=== PATIENT | male | born 1935 | race Caucasian/White ===

== ENCOUNTER 2021-02-28 22:13 | Emergency (ER) | payer MEDICARE, SELFPAY ==
[2021-02-28 22:15] VITALS: BP 213/135; PULSE 88; RESP 16; TEMP 37.2; O2SAT 94; BMI 28.6
[2021-02-28 22:32] VITALS: BP 213/135; PULSE 88; RESP 16; TEMP 37.2; O2SAT 94
--- NOTE | 2021-02-28 22:55 | EKG12_ITS ---
Test Reason : CP Blood Pressure : / mmHG Vent. Rate : 081 BPM Atrial Rate : 081 BPM P-R Int : 170 ms QRS Dur : 098 ms QT Int : 382 ms P-R-T Axes : 037 -44 044 degrees QTc Int : 443 ms Normal sinus rhythm Left axis deviation Moderate voltage criteria for LVH, may be normal variant Abnormal ECG Confirmed by LUCIUS CEBALLOS, DIONICIO ([id number]), supervising editor news reel AN XAVIER ([id number]) on 03/04/2021 2:56:13 PM Referred By: JOSE LUIS Confirmed By:DIONICIO KAN MD
--- NOTE | 2021-02-28 22:55 | RAD_ITS ---
STUDY: X-RAY CHEST REASON FOR EXAM: Male, 85 years old. chest pain TECHNIQUE: Single AP portable view of the chest. COMPARISON: None. FINDINGS: The lungs are clear and expanded. There is no demonstrated pleural abnormality. Normal size heart. Normal mediastinum and rosalind. Normal visualized pulmonary arteries. Normal visualized aortic arch and descending thoracic aorta. Normal visualized thoracic spine. Normal visualized ribs, clavicles, and shoulders. There is no demonstrated abnormality of the visualized soft tissue structures of the upper abdomen. RAD/Chest 1 View (Portable) IMPRESSION: Normal x-ray examination of the chest. Electronically Signed: Sterling Faith DO at 23:45 EDT Tel , Service support ,
--- NOTE | 2021-02-28 22:56 | ED.VIS.GI ---
HPI HPI - GI History of Present Illness Chief Complaint: Chest Pain Informant: patient Abdominal Pain/Flank Pain Onset: Weeks (3) Context: Gradual Onset Timing: Intermittent and Lasts (varies; usually hours when occurs) Quality: Aching Location: Epigastric Current Severity: 3/10 Maximum Severity: 6/10 Worsened by: Food and - (sometimes by lying down at night) Relieved by: Antacids (in past when this occured, but has had no access to any tums/pepto lately) Nausea/Vomiting/Emesis GI Symptom: Negative for Nausea and Vomiting Diarrhea/Melena/Hematochezia GI Symptom: Negative for Diarrhea, Melena and Hematochezia Associated Symptoms Associated Symptoms: Negative for Dysuria, Frequency, Hematuria and Urgency Narrative Narrative: Patient describes discomfort nonradiating in his epigastrium/lower retrosternal area. It is midline. States it seems to be worse after certain foods as it was tonight and would go away although it is better than it was earlier now. Denies any shortness of breath with this, pleuritic nature, palpitations, lightheadedness, syncope or near syncope. No nausea or vomiting or bright red blood per rectum or melena. He does not know what medication she is on or what they are for, but does know that he takes something for blood pressure. Unknown if he has a history of GERD. Does not recall ever having an EGD for any of this or any other testing. He had his gallbladder out but no other abdominal surgeries. That was remotely. [facility] Medical History BPH (benign prostatic hyperplasia) Constipation Dementia Herpes genitalis in men HTN (hypertension) Hyperlipidemia Type 2 diabetes mellitus Vitamin D deficiency Home Medications Pravastatin Sodium 1 tab PO DAILY 12/02/13 [History Last Taken Unknown] aspirin 81 mg PO DAILY@0800 12/02/13 [History Last Taken Unknown] cyanocobalamin (vitamin B-12) 1 tab PO DAILY 12/02/13 [History Last Taken Unknown] doxazosin 1 tab PO DAILY 12/02/13 [History Last Taken Unknown] dutasteride [Avodart] 1 tab PO DAILY 12/02/13 [History Last Taken Unknown] flavoring agent (bulk) [Cinnamon] 1,000 mg PO DAILY 12/02/13 [History Last Taken Unknown] gabapentin 1 tab PO DAILY 12/02/13 [History Last Taken Unknown] glipizide-metformin 1 tab PO BID 12/02/13 [History Last Taken Unknown] multivitamin with folic acid [Thera] 1 tab PO DAILY 12/02/13 [History Last Taken Unknown] ramipril 1 tab PO DAILY 12/02/13 [History Last Taken Unknown] sitagliptin [Januvia] 50 mg PO DAILY 12/02/13 [History Last Taken Unknown] timolol maleate 1 drp EACH EYE DAILY 12/02/13 [History Last Taken Unknown] vitamin E (dl, acetate) 400 units PO DAILY 12/02/13 [History Last Taken Unknown] oxycodone-acetaminophen 1 - 2 tab PO Q4H PRN PRN #30 tab 12/09/13 [Rx Last Taken Unknown] pantoprazole [Protonix] 40 mg PO DAILY #30 tab 03/01/21 [Rx Last Taken Unknown] Allergy/AdvReac Type Severity Reaction Status Date / Time meloxicam AdvReac Other Verified 02/28/21 22:17 Social History Smoking Status: Never smoker ROS ROS ED Constitutional Constitutional ED: Denies chills or fever(s) Eyes Eyes: Denies change in vision or diplopia ENT ENT ED: Denies rhinorrhea or sore throat Cardiovascular Cardiovascular: Reports as per HPI and chest pain; Denies palpitations Respiratory/Chest Respiratory/Chest: Denies cough or dyspnea Gastrointestinal Gastrointestinal: Reports as per HPI and abdominal pain; Denies diarrhea, nausea or vomiting Genitourinary Genitourinary ED: Denies dysuria or hematuria Musculoskeletal Musculoskeletal: Reports back pain and other Details: Chronic back discomfort, lower, stable ; Denies neck pain Integumentary Denies abscess or rash Neurologic Neurologic: Reports other Details: Occasional vertigo when he bends over, relatively brief and resolves when sitting up. Chronic. ; Denies headache(s), paresthesias or weakness Psychiatric Psychiatric: Denies anxiety or suicidal thoughts EXAM Physical Exam Const Vital Signs: 02/28/21 22:15 02/28/21 22:18 02/28/21 22:32 Temperature 99 F 99 F Temperature Source Oral Oral Pulse Rate 88 88 Respiratory Rate 16 16 Respiratory Effort Normal Blood Pressure 213/135 H 213/135 H Blood Pressure Mean 161 161 Pulse Ox 94 94 Oxygen Delivery Method Room Air Room Air 02/28/21 23:37 03/01/21 00:00 Temperature Temperature Source Pulse Rate 75 131 H Respiratory Rate 18 16 Respiratory Effort Blood Pressure 173/90 H 124/77 H Blood Pressure Mean 117 92 Pulse Ox 99 96 Oxygen Delivery Method Positive well nourished and well developed General Appearance ED: well developed and NAD HEENT Reports moist mucous membranes normocephalic and atraumatic Eyes PERRL and EOMs intact bilaterally Neck full ROM and supple Resp normal respiratory effort and clear to auscultation bilaterally Cardio regular rate, regular rhythm and no murmurs Rate: Negative for tachycardic GI non-distended Auscultation: normoactive bowel sounds Palpation: soft and tender epigastric and RUQ (no [place]); Negative for guarding or rebound tenderness present Back/Spine no CVA tenderness General Back: other FROM Extremity normal to inspection General Extremety ED: Negative for edema, pulses abnormal or tenderness General Extremity: Negative for edema or pulses abnormal Neuro oriented x3, CN's II-XII intact bilaterally and no sensory deficits noted Sensorium / Orientation: awake and alert Motor Exam: strength 5/5 throughout Skin no rashes or lesions noted and no wounds MDM MDM Lab Data Attestation: I reviewed the patient's lab results. Lab results narrative: Patient was treated with a GI cocktail and feels much improved. On reexamination he is barely tender in the epigastrium, much improved compared with before. His labs were noted, including negative troponin, lack of a leukocytosis, lack of a urinary infection, normal liver enzymes and lipase. His symptoms sound GI in etiology. I also did a cardiac work-up which was negative, including chest x-ray. He is not on an H2 leonarda or PPI so I will prescribe him 1 and advised close outpatient follow-up. Additionally, his blood pressure was extremely high in triage. He was given clonidine 0.1 mg and on reevaluation his blood pressure is 124/77. It is unknown if this contributed to his symptoms, but the patient states that he felt like the GI cocktail helped his abdominal discomfort. His blood pressure could have been incidentally elevated. He will need to have this followed up on, he is already on blood pressure medication that he should continue, but he does not know the dose. Labs: Laboratory Results - last 24 hr 05/13/21 05/13/21 05/13/21 23:00 23:00 23:15 WBC 10.2 RBC 4.35 L Hgb 13.2 Hct 40.5 MCV 93.1 MCH 30.3 MCHC 32.6 RDW Std Deviation 45.7 H RDW Coeff of Susi 13.3 Plt Count 322 MPV 9.8 Immature Gran % (Auto) 0.400 Neut % (Auto) 76.2 H Lymph % (Auto) 14.0 L [place] % (Auto) 8.0 Eos % (Auto) 1.0 Baso % (Auto) 0.4 Absolute Neuts (auto) 7.8 H Absolute Lymphs (auto) 1.43 Nucleated RBC % 0 Sodium 136 Potassium 4.0 Chloride 103 Carbon Dioxide 28.0 Anion Gap 5 BUN 17 Creatinine 0.99 Estim Creat Clear Calc 49.23 Est GFR (MDRD) Af Amer 92 Est GFR (MDRD) Non-Af 76 BUN/Creatinine Ratio 17.2 Glucose 349 H Calcium 8.8 Total Bilirubin 0.20 AST 15 ALT 33 Alkaline Phosphatase 94 Troponin I < 0.015 Total Protein 7.0 Albumin 3.2 Globulin 3.8 Albumin/Globulin Ratio 0.8 L Lipase 40 L Urine Color Yellow Urine Clarity Clear Urine pH 6.5 Ur Specific [place] 1.010 Urine Protein Negative Urine Glucose (UA) 1000 H Urine Ketones Negative Urine Occult Blood Negative Urine Nitrite Negative Urine Bilirubin Negative Urine Urobilinogen Normal Ur Leukocyte Esterase Negative Urine RBC 0 SEEN Urine WBC 0 SEEN Ur Squamous Epith Cells 0 SEEN Urine Bacteria 0 SEEN Urine Mucus 0 SEEN Radiography Chest X-Ray - ED: 1 View, Read by ED Physician, No Acute Disease and No Infiltrates Diagnostic Testing: Radiology Impression Chest X-Ray 02/28/21 22:55 IMPRESSION: Normal x-ray examination of the chest. Electronically Signed: Sterling Faith DO at 23:45 EDT Tel , Service support , EKG Initial EKG: Attestation: I personally reviewed and interpreted this EKG as follows: Interpretation: Sinus Rhythm, No Acute Injury Pattern and LAFB Prior EKG tracings: available for review Prior: Unchanged Discharge Plan Triage Chief Complaint: Chest Pain ED Provider: Vicente Blake Dx/Rx/DC Orders Clinical Impression: Epigastric pain, Episode of hypertension Instructions: ED High Blood Pressure ..., ED Epigastric Pain (Uncertain Cause) Prescriptions: New pantoprazole [Protonix] 40 mg tablet,delayed release (DR/EC) 40 mg PO DAILY Qty: 30 RF: 0 No Action aspirin 81 MG tablet 81 mg PO DAILY@0800 RF: 0 doxazosin 8 MG tablet 1 tab PO DAILY RF: 0 cyanocobalamin (vitamin B-12) 500 MCG tablet 1 tab PO DAILY RF: 0 ramipril 2.5 MG capsule 1 tab PO DAILY RF: 0 gabapentin 100 MG capsule 1 tab PO DAILY RF: 0 timolol maleate 1 DROP drops 1 drp Each Eye DAILY RF: 0 glipizide-metformin 1 EACH tablet 1 tab PO BID RF: 0 dutasteride [Avodart] 0.5 MG capsule 1 tab PO DAILY RF: 0 flavoring agent (bulk) [Cinnamon Flavoring] 3.7 ML oil 1,000 mg PO DAILY RF: 0 sitagliptin [Januvia] 50 MG tablet 50 mg PO DAILY RF: 0 vitamin E (dl, acetate) 400 UNITS capsule 400 units PO DAILY RF: 0 multivitamin with folic acid [Thera] 1 TABLET tablet 1 tab PO DAILY RF: 0 Pravastatin Sodium 40 MG tablet 1 tab PO DAILY RF: 0 oxycodone-acetaminophen 1 TABLET tablet 1 - 2 tab PO Q4H PRN PRN (Reason: Pain) Qty: 30 RF: 0 Primary Care Provider: Alfonzo Mora Referrals: Alfonzo Mora MD [Primary Care Provider] - 5-7 Days Activity Restrictions/Additional Instructions: Make sure to follow-up with your doctor to have your blood pressure rechecked and to reevaluate your medications and symptoms of abdominal pain. Disposition Disposition: Home, self care
[2021-02-28 23:18] LABS: Absolute Lymphocyte Count 1.43 X10^3/uL (0.83-4.51); Absolute Neutrophil Count 7.8 X10^3/uL (2.0-7.7); Basophil# 0.04 X10^3/uL; Basophil% 0.4 % (0-1); Hematocrit 40.5 % (40-54); Hemoglobin 13.2 g/dL (13.0-16.5); Lymphocyte # 1.43 X10^3/ul (0.83-4.51); Mean Corp Hgb Conc 32.6 g/dL (32-36); Mean Corpuscular Hgb 30.3 pg (27.0-32.0); Mean Corpuscular Volume 93.1 fL (80-94); Mean Platelet Vol. 9.8 fl (6.2-12.0); Monocyte# 0.82 X10^3/uL; NRBC Flagged by Analyzer 0 % (0-5); Neutrophil # 7.76 X10^3/uL (2.7-7.7); Neutrophil % 76.2 % (47-70); Platelet Count 322 K/mm3 (150-450); RBC Distribution Width CV 13.3 % (11.6-14.6); RBC Distribution Width SD 45.7 fl (35.1-43.9); Red Blood Count 4.35 M/mm3 (4.6-6.2); White Blood Count 10.2 K/mm3 (4.4-11.0)
[2021-02-28 23:31] LABS: Bacteria 0 SEEN /hpf (None Seen); Mucous, Urine 0 SEEN /hpf (<or=2+); Red Blood Cells-Urine 0 SEEN /hpf (0-5); Squamous Epithelial Cells - UA 0 SEEN /hpf (0-5); White Blood Cells 0 SEEN /hpf (0-5)
[2021-02-28 23:33] LABS: Color, Urine Yellow (Yellow); Glucose, Dipstick 1000 mg/dl (Normal); Ketone-Dipstick Negative (Negative); Leukocyte Esterase-Dipstick Negative /ul (Negative); Nitrite-Dipstick Negative (Negative); Occult Blood-Urine Negative /ul (Negative); Protein-Dipstick Negative (Negative); Urine Bilirubin Dipstick Negative (Negative); Urine Clarity Clear (Clear); Urine Urobilinogen Normal (Normal); Urine pH 6.5 (5.0 - 8.0)
[2021-02-28 23:37] VITALS: BP 173/90; PULSE 75; RESP 18; O2SAT 99
[2021-02-28 23:38] LABS: ALB/GLOB Ratio 0.8 RATIO (0.9-2.4); AST(SGOT) 15 U/L (15-37); Alanine Aminotransfer ALT/SGPT 33 U/L (16-61); Albumin, Serum 3.2 g/dL (3.2-5.0); Alkaline Phosphatase 94 U/L (45-117); Anion Gap 5 (5-15); BUN 17 mg/dL (7-18); BUN/Creat Ratio 17.2 RATIO (10-20); Calcium,Total 8.8 mg/dL (8.5-10.1); Chloride 103 mmol/L (98-107); Creatinine, Serum 0.99 mg/dL (0.70-1.30); EST Glomerular Filtration Rate 76 mL/min (>60); Est Glom Filt Rate - Afr Amer 92 mL/min (>60); Estimated Creatinine Clearance 49.23 ml/min; Globulin 3.8 g/dL (2.2-4.2); Glucose 349 mg/dL (74-106); Lipase 40 U/L (73-393); Sodium Level 136 mmol/L (136-145)
[2021-02-28] MEDS: cloNIDine HCl 0.1 MG Tablet PO (23:39)
[2021-02-28] MEDS: Mag Hydrox/Al Hydrox/Simeth 30 ML UDC PO (23:39)
[2021-03-01] VITALS: BP 124/77; PULSE 131; RESP 16; O2SAT 96
[2021-03-01] MEDS: Pantoprazole Sodium 40 MG Tablet PO (01:37)
[2021-03-01 01:38] VITALS: BP 159/91; PULSE 52; RESP 16; O2SAT 99
== END 2021-03-01 01:41 | disposition home or self-care (01) ==
PROVIDERS: Emergency Provider Emergency Medicine; PCP Family Medicine
DX: R10.13 Epigastric pain (principal); I10 Essential (primary) hypertension; K59.00 Constipation, unspecified; N40.0 Benign prostatic hyperplasia without lower urinary tract symptoms; F03.90 Unspecified dementia, unspecified severity, without behavioral disturbance, psychotic disturbance, mood disturbance, and anxiety; E78.5 Hyperlipidemia, unspecified; E55.9 Vitamin D deficiency, unspecified; E11.9 Type 2 diabetes mellitus without complications; Z79.82 Long term (current) use of aspirin; Z79.84 Long term (current) use of oral hypoglycemic drugs; Z79.899 Other long term (current) drug therapy
CPT/HCPCS: 71045; 80053; 81001; 83690; 84484; 85025; 93005; 99285; A4216

== ENCOUNTER 2021-03-01 02:41 | Observation (INO) | payer MEDICARE, OTHER, SELFPAY ==
[2021-02-28 22:15] VITALS: BMI 28.6
[2021-03-01] VITALS (11 sets, daily range): BP systolic 115–177; BP diastolic 68–119; PULSE 87–122; RESP 16–18; TEMP 36.1–37.6; O2SAT 94–99; BMI 27.0; BMI 25.4
--- NOTE | 2021-03-01 02:52 | EX.ED.DYSGE1 ---
HPI History of Present Illness Chief Complaint: Hypertension Informant: patient Onset/Context/Timing Quality: Ache Location: Lower chest/epigastrium Current Severity: Mild Maximum Severity: Moderate Narrative Narrative: Patient was just discharged from this department after being seen by myself for lower chest/upper abdominal pain, getting better after GI cocktail, and having high blood pressure. We got his blood pressure down, it was around 150 when the nurse checked it again just prior to the EMS crew picking him up to take him back to assisted living, and when he returned there they checked it again it was 200 systolic, and assisted living refused to take him back so squad brought him back. He states he feels the same, no different, no worse, still mild discomfort between his chest and epigastrium. 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 HTN (hypertension) Hyperlipidemia Type 2 diabetes mellitus Vitamin D deficiency Home Medications Pravastatin Sodium 1 tab PO DAILY 12/02/13 [History Last Taken Unknown] aspirin 81 mg PO DAILY@0800 12/02/13 [History Last Taken Unknown] cyanocobalamin (vitamin B-12) 1 tab PO DAILY 12/02/13 [History Last Taken Unknown] doxazosin 1 tab PO DAILY 12/02/13 [History Last Taken Unknown] dutasteride [Avodart] 1 tab PO DAILY 12/02/13 [History Last Taken Unknown] flavoring agent (bulk) [Cinnamon] 1,000 mg PO DAILY 12/02/13 [History Last Taken Unknown] gabapentin 1 tab PO DAILY 12/02/13 [History Last Taken Unknown] glipizide-metformin 1 tab PO BID 12/02/13 [History Last Taken Unknown] multivitamin with folic acid [Thera] 1 tab PO DAILY 12/02/13 [History Last Taken Unknown] ramipril 1 tab PO DAILY 12/02/13 [History Last Taken Unknown] sitagliptin [Januvia] 50 mg PO DAILY 12/02/13 [History Last Taken Unknown] timolol maleate 1 drp EACH EYE DAILY 12/02/13 [History Last Taken Unknown] vitamin E (dl, acetate) 400 units PO DAILY 12/02/13 [History Last Taken Unknown] oxycodone-acetaminophen 1 - 2 tab PO Q4H PRN PRN #30 tab 12/09/13 [Rx Last Taken Unknown] pantoprazole [Protonix] 40 mg PO DAILY #30 tab 03/01/21 [Rx Last Taken Unknown] Allergy/AdvReac Type Severity Reaction Status Date / Time meloxicam AdvReac Other Verified 02/28/21 22:17 Social History Smoking Status: Never smoker ROS ROS ED Constitutional Constitutional ED: Denies chills or fever(s) Eyes Eyes: Denies change in vision or diplopia ENT ENT ED: Denies rhinorrhea or sore throat Cardiovascular Cardiovascular: Reports as per HPI and chest pain; Denies palpitations Respiratory/Chest Respiratory/Chest: Denies cough or dyspnea Gastrointestinal Gastrointestinal: Reports as per HPI and abdominal pain; Denies diarrhea, nausea or vomiting Genitourinary Genitourinary ED: Denies dysuria or hematuria Musculoskeletal Musculoskeletal: Denies back pain or neck pain Integumentary Denies abscess or rash Neurologic Neurologic: Denies headache(s), paresthesias or weakness Psychiatric Psychiatric: Denies anxiety or suicidal thoughts EXAM Physical Exam Const Vital Signs: 03/01/21 02:42 03/01/21 03:15 03/01/21 03:17 Temperature 97.3 F L Temperature Source Temporal Pulse Rate 94 89 Respiratory Rate 16 16 Respiratory Pattern Normal Blood Pressure 177/119 H 173/99 H Blood Pressure Mean 138 123 Pulse Ox 96 95 Positive well nourished and well developed General Appearance ED: well developed and NAD HEENT Reports moist mucous membranes normocephalic and atraumatic Eyes PERRL and EOMs intact bilaterally Neck full ROM and supple Resp normal respiratory effort and clear to auscultation bilaterally Cardio regular rate, regular rhythm and no murmurs GI non-distended Auscultation: normoactive bowel sounds Palpation: soft and tender epigastric Back/Spine no CVA tenderness General Back: other FROM Extremity normal to inspection General Extremety ED: Negative for edema, pulses abnormal or tenderness General Extremity: Negative for edema or pulses abnormal Neuro oriented x3, CN's II-XII intact bilaterally and no sensory deficits noted Sensorium / Orientation: awake and alert Motor Exam: strength 5/5 throughout Skin no rashes or lesions noted and no wounds MDM MDM MDM Narrative Medical decision making narrative: I repeated the patient's EKG it shows no acute injury. I gave him labetalol which temporarily brought his pressure down but then it went back up into the 180s. He continues to have mild upper abdominal discomfort which I think is likely GI, but I am concerned about his pressure and I think admitting him to get his pressure under control would be most reasonable. Apparently the senior care did not want to take him back because his blood sugar was in the 300s. The patient had told me prior to the first visit that he was given his nighttime insulin already, and since I did not have good data on how much insulin he got, I held off. Now his blood sugar is in the low 200s. Lab Data Labs: Laboratory Results - last 24 hr 03/01/21 03:08 POC Glucose 282 H EKG Initial EKG: Attestation: I personally reviewed and interpreted this EKG as follows: Interpretation: Sinus Rhythm and No Acute Injury Pattern Prior EKG tracings: available for review Prior: Unchanged Discharge Plan Dx/Rx/DC Orders Clinical Impression: Chest pain, Accelerated hypertension, Epigastric pain Disposition Disposition: Acute Care Hospital [facility]
--- NOTE | 2021-03-01 02:53 | EKG12_ITS ---
Test Reason : Blood Pressure : / mmHG Vent. Rate : 096 BPM Atrial Rate : 096 BPM P-R Int : 160 ms QRS Dur : 088 ms QT Int : 352 ms P-R-T Axes : 024 -55 060 degrees QTc Int : 444 ms Normal sinus rhythm Left anterior fascicular block Minimal voltage criteria for LVH, may be normal variant Poor R wave progression Abnormal ECG Confirmed by LUCIUS CEBALLOS, DIONICIO ([id number]), publication editor AN XAVIER ([id number]) on 03/04/2021 2:56:32 PM Referred By: HAO Confirmed By:DIONICIO KAN MD
[2021-03-01] MEDS: Labetalol (Prefilled) 20 MG/4 ML 10 MG IV (03:13)
[2021-03-01 03:15] LABS: Bedside Glucose 282 mg/dL (70-110)
--- NOTE | 2021-03-01 04:36 | PCM.HP.STD ---
[facility] - General General Date of Admission: 03/01/21 HPI Narrative Patient is a 85 M with a significant history of dementia; hypertension; and type 2 diabetes who lives at [facility] presenting to the emergency department with epigastric pain. He rated his pain as 8 out of 10. The pain radiated to his lower abdomen. He thinks greasy food worsens the pain. He denies any ameliorating factors to the pain. This is a second visit to the emergency department. On the first visit patient was given a GI cocktail which helped with his pain. He had high blood pressure at that time. His blood pressure was controlled and he was sent back to the assisted. When he got to the assisted his blood pressure was in the 200s and his blood glucose was in the 300s. He was transported back to the emergency department. At the emergency department he was given labetalol IV. He reports having a Covid vaccination the same day of his first presentation to the emergency department. This was his first Covid shot. Of note his first visit was on the night of 02/28/2021 and the second visit was in the AM of 03/01/2021. [facility] Medical History BPH (benign prostatic hyperplasia) Constipation Dementia Herpes genitalis in men HTN (hypertension) Hyperlipidemia Non-smoker Rheumatoid arthritis Type 2 diabetes mellitus Vitamin D deficiency Home Medications multivitamin with folic acid [Thera] 1 tab PO DAILY 12/02/13 [History Last Taken Unknown] ramipril 1 tab PO DAILY 12/02/13 [History Last Taken Unknown] timolol maleate 1 drp EACH EYE DAILY 12/02/13 [History Last Taken Unknown] acetaminophen 500 mg PO BID 03/01/21 [History Last Taken Unknown] cholecalciferol (vitamin D3) [Vitamin D3] 125 mcg PO DAILY 03/01/21 [History Last Taken Unknown] finasteride [Proscar] 5 mg PO DAILY 03/01/21 [History Last Taken Unknown] glimepiride 4 mg PO BID 03/01/21 [History Last Taken Unknown] insulin aspart U-100 [Novolog U-100 Insulin aspart] 5 unit SUBCUT BID 03/01/21 [History Last Taken Unknown] insulin glargine [Basaglar KwikPen U-100 Insulin] 18 unit SUBCUT DAILY 03/01/21 [History Last Taken Unknown] loratadine 10 mg PO DAILY 03/01/21 [History Last Taken Unknown] omeprazole 20 mg PO DAILY 03/01/21 [History Last Taken Unknown] pravastatin 20 mg PO DAILY 03/01/21 [History Last Taken Unknown] tamsulosin 0.4 mg PO DAILY 03/01/21 [History Last Taken Unknown] Allergy/AdvReac Type Severity Reaction Status Date / Time meloxicam AdvReac Other Verified 03/01/21 06:03 Family History (Updated 03/01/21 @ 06:[address] Soren Larsen MD) Other Arthritis CVA (cerebral vascular accident) Diabetes Surgical History History of cholecystectomy Social History Smoking Status: Never smoker ROS ROS Narrative 12 point review of systems negative except as stated in HPI Vital Signs Vital Signs Vital Signs: 03/01/21 02:42 03/01/21 03:15 03/01/21 03:17 Temperature 97.3 F L Temperature Source Temporal Pulse Rate 94 89 Respiratory Rate 16 16 Respiratory Pattern Normal Blood Pressure 177/119 H 173/99 H Blood Pressure Mean 138 123 Pulse Ox 96 95 Physical Exam Narrative Alert and oriented x3 Nontraumatic; normocephalic Lung clear to auscultate Heart sounds S1-S2. No gallop or rubs. Murmur present (chronic) Abdomen bowel sounds present soft, nontender nondistended Extremity without edema cyanosis or clubbing. Lab / Micro Data Labs: Laboratory Results - last 24 hr 03/01/21 03:08 POC Glucose 282 H Assessment & Plan Assessment/Plan (1) Epigastric pain: (2) Episode of hypertension: (3) Accelerated hypertension: (4) Hyperglycemia due to diabetes mellitus: PLAN: Hypertensive emergency IV labetalol and IV hydralazine as needed to keep systolic blood pressure between 160-1 80 in the first 24 hours. Resume home blood pressure medications when reconciled. Trend blood pressures. Epigastric pain Radiologist impression of chest x-ray: Acute chest x-ray image was independently visualized. Add radiologist interpretation. EKG reviewed showed ST depressions in leads I and aVL. Likely secondary to hypertensive effects. trend troponin. Escalate Protonix. Mylanta as needed. Hyperglycemia due to diabetes mellitus Accu-Chek with correction scale insulin. Ordered. Continue home p.o. and basal insulin when reconciled. DVT prophylaxis Subcutaneous Lovenox ordered. Visit Charges OBSV E&M: [id number] Initial observation care L3
[2021-03-01] MEDS: Pantoprazole Sodium 40 MG Tablet PO ×2 (06:33→21:56)
[2021-03-01 06:50] LABS: Bedside Glucose 358 mg/dL (70-110)
[2021-03-01] MEDS: Insulin Lispro 100 UNIT/ML INSULN.PEN SC ×4 (06:50→21:56)
[2021-03-01] MEDS: Mag Hydrox/Al Hydrox/Simeth 30 ML UDC PO (07:11)
[2021-03-01] MEDS: 0.9% Saline Lock 10 ML Syringe IV ×2 (09:15→19:48)
[2021-03-01] MEDS: Ondansetron 4 MG/2 ML Vial IV ×2 (09:15→19:48)
--- NOTE | 2021-03-01 10:10 | CASEMGMT ---
Addendum entered by Renetta Morrow 03/01/21 13:43: SW spoke with patient's son and he confirmed that the plan is for patient to return to [facility] at discharge. He said he could transport patient when he is ready. Green sheet will be placed on patient's chart. Plan: Return to [facility]. Family will transport back. Renetta SCOTT Original Note: Patient is from [facility]. TRUE faxed clinicals to [facility]. TRUE will talk with patient's son and confirm that his plan is to return to [facility] and see if he will be transporting. Renetta SCOTT
[2021-03-01] MEDS: Enoxaparin 40 MG/0.4 ML Syringe SC (11:40)
[2021-03-01 12:01] LABS: Bedside Glucose 334 mg/dL (70-110)
[2021-03-01] MEDS: Acetaminophen 325 MG Tablet 650 MG PO ×2 (12:01→19:47)
[2021-03-01] MEDS: Senna/Docusate Sodium 1 Tablet 2 TABLET PO ×2 (12:55→19:47)
[2021-03-01 13:36] LABS: Bedside Glucose 351 mg/dL (70-110)
[2021-03-01] MEDS: Bisacodyl 10 MG Suppository RC (15:19)
[2021-03-01 16:30] LABS: Bedside Glucose 245 mg/dL (70-110)
--- NOTE | 2021-03-01 17:28 | PCM.HOSP.N ---
Hospitalist Note Patient was seen and examined briefly today, his blood pressure is under better control at this time, he does complain of some vague mid abdominal pain, I have elected to give the patient a laxative today. His blood pressure and blood sugar will continue to be monitored.
[2021-03-01 22:06] LABS: Bedside Glucose 256 mg/dL (70-110)
[2021-03-02 03:00] VITALS: PULSE 80
[2021-03-02 03:14] VITALS: BP 128/79; PULSE 83; RESP 18; TEMP 36.7; O2SAT 94
[2021-03-02 05:51] LABS: Absolute Neutrophil Count 5.8 X10^3/uL (2.0-7.7); Basophil# 0.02 X10^3/uL; Basophil% 0.3 % (0-1); Eosinophil# 0.05 X10^3/uL; Eosinophils% 0.7 % (0-5); Hematocrit 40.8 % (40-54); Hemoglobin 13.5 g/dL (13.0-16.5); Lymphocyte % 9.6 % (19-41); Mean Corp Hgb Conc 33.1 g/dL (32-36); Mean Corpuscular Hgb 30.3 pg (27.0-32.0); Mean Corpuscular Volume 91.5 fL (80-94); Mean Platelet Vol. 9.8 fl (6.2-12.0); Monocyte# 0.73 X10^3/uL; NRBC Flagged by Analyzer 0 % (0-5); Neutrophil # 5.77 X10^3/uL (2.7-7.7); Platelet Count 287 K/mm3 (150-450); RBC Distribution Width CV 13.4 % (11.6-14.6); RBC Distribution Width SD 45.8 fl (35.1-43.9); Red Blood Count 4.46 M/mm3 (4.6-6.2); White Blood Count 7.3 K/mm3 (4.4-11.0)
[2021-03-02 06:35] LABS: Anion Gap 7 (5-15); BUN 21 mg/dL (7-18); Calcium,Total 8.1 mg/dL (8.5-10.1); Chloride 100 mmol/L (98-107); Creatinine, Serum 0.81 mg/dL (0.70-1.30); EST Glomerular Filtration Rate 96 mL/min (>60); Est Glom Filt Rate - Afr Amer 116 mL/min (>60); Estimated Creatinine Clearance 62.34 ml/min; Glucose 242 mg/dL (74-106); Potassium 3.6 mmol/L (3.5-5.1); Sodium Level 133 mmol/L (136-145)
[2021-03-02] MEDS: Insulin Lispro 100 UNIT/ML INSULN.PEN SC ×2 (06:35→11:20)
[2021-03-02 06:40] LABS: Bedside Glucose 290 mg/dL (70-110)
[2021-03-02 07:00] VITALS: PULSE 82
[2021-03-02 09:01] VITALS: BP 140/77; PULSE 83; RESP 16; TEMP 36.2; O2SAT 94
[2021-03-02] MEDS: Enoxaparin 40 MG/0.4 ML Syringe SC (09:07)
[2021-03-02] MEDS: Aspirin 81 MG TAB.CHEW PO (09:08)
[2021-03-02] MEDS: Pantoprazole Sodium 40 MG Tablet PO (09:08)
[2021-03-02] MEDS: Senna/Docusate Sodium 1 Tablet 2 TABLET PO (09:08)
--- NOTE | 2021-03-02 10:55 | CASEMGMT ---
JUDIE ESTRADA in to discuss DYE Form with patient, DIL at bedside. RN NATALIE explained DYE form to patient and daughter. Patient voiced understanding and requested DIL sign form. Signed form filed in chart and copy provided to patient. Patient had no further questions or concerns at this time.
[2021-03-02 11:26] LABS: Bedside Glucose 280 mg/dL (70-110)
--- NOTE | 2021-03-02 14:12 | PCM.DC ---
Discharge Instructions Follow Up Care Test Results: Test results from this visit will be discussed in further detail at your follow-up appointment, if applicable. Discharge Plan Admission Admit Date/Time: 03/01/21 04:43 Primary Reason for Your Visit: uncontrolled hypertension Attending Provider: Wade Horan Primary Care Provider: Alfonzo Mora Instructions Patient Instructions: ED Chest Pain, Noncardiac Discharge Orders/Prescriptions Prescriptions: New lisinopril 40 mg tablet 40 mg PO DAILY Qty: 30 RF: 0 amlodipine [Norvasc] 2.5 mg tablet 2.5 mg PO DAILY Qty: 30 RF: 0 Continued timolol maleate 1 DROP drops 1 drp Each Eye DAILY RF: 0 multivitamin with folic acid [Thera] 1 TABLET tablet 1 tab PO DAILY RF: 0 acetaminophen 500 mg Tablet 500 mg PO BID RF: 0 tamsulosin 0.4 mg Capsule 0.4 mg PO DAILY RF: 0 glimepiride 4 mg tablet 4 mg PO BID RF: 0 omeprazole 20 mg Capsule,Delayed Release(Dr/Ec) 20 mg PO DAILY RF: 0 pravastatin 20 mg tablet 20 mg PO DAILY RF: 0 finasteride [Proscar] 5 mg tablet 5 mg PO DAILY RF: 0 loratadine 10 mg Tablet 10 mg PO DAILY RF: 0 cholecalciferol (vitamin D3) [Vitamin D3] 125 mcg (5,000 unit) Tablet 125 mcg PO DAILY RF: 0 Changed insulin aspart U-100 [Novolog U-100 Insulin aspart] 100 unit/mL Solution 10 unit SUBCUT BID Qty: 0 RF: 0 Basaglar KwikPen U-100 Insulin 100 unit/mL (3 mL) insulin pen 22 unit SUBCUT DAILY Qty: 0 RF: 0 Discontinued ramipril 2.5 MG capsule 1 tab PO DAILY RF: 0 Referrals / Follow Up: Alfonzo Mora MD [Primary Care Provider] - Disposition Disposition (needs filled in before D/C Order can be placed): Assisted Living
[2021-03-02 14:21] VITALS: BP 118/70; PULSE 83; RESP 16; TEMP 36.4; O2SAT 94
[2021-03-02] MEDS: Bisacodyl 5 MG Tablet 10 MG PO (14:47)
[2021-03-02] MEDS: Lisinopril 40 MG Tablet PO (14:48)
[2021-03-02] MEDS: amLODIPine 2.5 MG Tablet PO (14:48)
[2021-03-02 15:00] VITALS: PULSE 78
--- NOTE | 2021-03-04 19:51 | DS.PCM_ITS ---
Providers Date of Admission: 03/01/21 Date of Discharge: 03/02/21 Primary Care Physician: Dr. Alfonzo Mora MD Reason For Visit: HYPERTENSIVE EMERGENCY Diagnosis Discharge Diagnosis (1) Epigastric pain: Status: Acute Code(s): R10.13 - Epigastric pain (2) Episode of hypertension: Status: Acute Code(s): I10 - Essential (primary) hypertension (3) Accelerated hypertension: Status: Acute Code(s): I10 - Essential (primary) hypertension (4) Hyperglycemia due to diabetes mellitus: Status: Acute Code(s): E11.65 - Type 2 diabetes mellitus with hyperglycemia Plan: 1. Uncontrolled hypertension #2 dementia #3 unspecified abdominal pain-etiology unclear #4 type 2 diabetes #5 hyperlipidemia #6 BPH Medications at Discharge Home Medications multivitamin with folic acid [Thera] 1 tab PO DAILY 12/02/13 timolol maleate 1 drp EACH EYE DAILY 12/02/13 acetaminophen 500 mg PO BID 03/01/21 cholecalciferol (vitamin D3) [Vitamin D3] 125 mcg PO DAILY 03/01/21 finasteride [Proscar] 5 mg PO DAILY 03/01/21 glimepiride 4 mg PO BID 03/01/21 loratadine 10 mg PO DAILY 03/01/21 omeprazole 20 mg PO DAILY 03/01/21 pravastatin 20 mg PO DAILY 03/01/21 tamsulosin 0.4 mg PO DAILY 03/01/21 Basaglar KwikPen U-100 Insulin 22 unit SUBCUT DAILY #0 ml 03/02/21 amlodipine [Norvasc] 2.5 mg PO DAILY #30 tab 03/02/21 insulin aspart U-100 [Novolog U-100 Insulin aspart] 10 unit SUBCUT BID #0 ml 03/02/21 lisinopril 40 mg PO DAILY #30 tab 03/02/21 Hospital Course Operations None Procedures None Summary of Care Provided Minutes Spent on Discharge: 30 Hospital Course: This 85-year-old white male was seen in the emergency room at [facility] with chief complaint of epigastric abdominal pain and high blood pressure, he had been seen in the emergency room earlier on that date and was being taken back to assisted living when it was noted that his blood pressure was high in the squad and the squad brought him back to the emergency room for evaluation. Patient was given additional blood pressure medications in the ER and he was placed in observation status on PCU, patient's blood pressure medications were adjusted and his blood pressure came down without incident. Patient continued to have epigastric discomfort, the exact etiology was unclear but could be due to constipation. On 03/02/2021, patient was seen and examined: On examination he appeared his stated age. Vital signs as documented. Skin warm and dry and without overt rashes. Neck without JVD, neck was supple, trachea midline, thyroid was normal. Lungs clear bilaterally, normal air movement was noted. Heart exam notable for regular rhythm, normal sounds and absence of murmurs, rubs or gallops. Abdomen unremarkable and without evidence of organomegaly, masses, or abdominal aortic enlargement. Bowel sounds are present, abdomen is not distended. Extremities nonedematous, no cyanosis was noted, no clubbing was noted. Neuro: Cranial nerves II through XII are grossly intact, no focal motor deficits were noted, sensation to light touch and pinprick intact, motor exam 5/5 throughout. Psych: Patient is alert, he exhibited cognitive impairment, he did not appear anxious Patient was discharged on 03/02/2021 is stable condition back to his assisted living facility. ABG / Lab / Microbiology Data Result Diagrams: 03/02/21 05:24 03/02/21 05:24 Meaningful Use Info Meaningful Use Diagnoses (Choose all that apply): None applicable Discharge Plan Admission Admit Date/Time: 03/01/21 04:43 Primary Reason for Your Visit: uncontrolled hypertension Attending Provider: Wade Horan Primary Care Provider: Alfonzo Mora Instructions Patient Instructions: ED Chest Pain, Noncardiac Additional Instructions / Restrictions: Patient Problems: Altered Health Status related to Hospitalization Patient Goals: *Optimal Level of Health *Keep Appointments *Medication Compliance *Remain Safe Discharge Orders/Prescriptions Prescriptions: New lisinopril 40 mg tablet 40 mg PO DAILY Qty: 30 RF: 0 amlodipine [Norvasc] 2.5 mg tablet 2.5 mg PO DAILY Qty: 30 RF: 0 Continued timolol maleate 1 DROP drops 1 drp Each Eye DAILY RF: 0 multivitamin with folic acid [Thera] 1 TABLET tablet 1 tab PO DAILY RF: 0 acetaminophen 500 mg Tablet 500 mg PO BID RF: 0 tamsulosin 0.4 mg Capsule 0.4 mg PO DAILY RF: 0 glimepiride 4 mg tablet 4 mg PO BID RF: 0 omeprazole 20 mg Capsule,Delayed Release(Dr/Ec) 20 mg PO DAILY RF: 0 pravastatin 20 mg tablet 20 mg PO DAILY RF: 0 finasteride [Proscar] 5 mg tablet 5 mg PO DAILY RF: 0 loratadine 10 mg Tablet 10 mg PO DAILY RF: 0 cholecalciferol (vitamin D3) [Vitamin D3] 125 mcg (5,000 unit) Tablet 125 mcg PO DAILY RF: 0 Changed insulin aspart U-100 [Novolog U-100 Insulin aspart] 100 unit/mL Solution 10 unit SUBCUT BID Qty: 0 RF: 0 Basaglar KwikPen U-100 Insulin 100 unit/mL (3 mL) insulin pen 22 unit SUBCUT DAILY Qty: 0 RF: 0 Discontinued ramipril 2.5 MG capsule 1 tab PO DAILY RF: 0 Referrals / Follow Up: Alfonzo Mora MD [Primary Care Provider] - Disposition Disposition (needs filled in before D/C Order can be placed): Assisted Living Visit Charges OBSV E&M: 63375 Observation care discharge
== END 2021-03-02 14:26 | disposition home or self-care (01) ==
LOC: ED 04:22 → PCU 04:57
PROVIDERS: Admitting Provider Hospitalist; Emergency Provider Emergency Medicine; PCP Family Medicine; Visit Provider Internal Medicine
DX: R10.13 Epigastric pain (principal); I10 Essential (primary) hypertension; E11.65 Type 2 diabetes mellitus with hyperglycemia; I16.1 Hypertensive emergency; N40.0 Benign prostatic hyperplasia without lower urinary tract symptoms; E78.5 Hyperlipidemia, unspecified; E55.9 Vitamin D deficiency, unspecified; Z79.4 Long term (current) use of insulin; Z79.899 Other long term (current) drug therapy; Z79.82 Long term (current) use of aspirin; F03.90 Unspecified dementia, unspecified severity, without behavioral disturbance, psychotic disturbance, mood disturbance, and anxiety; M06.9 Rheumatoid arthritis, unspecified; K59.00 Constipation, unspecified
CPT/HCPCS: 36415; 80048; 82962; 84484; 85025; 93005; 96372; 96374; 96375; 96376; 97162; 99218; 99285; A4216; G0378; J2405

== ENCOUNTER 2021-03-06 16:33 | Emergency (ER) | payer MEDICARE, OTHER, SELFPAY ==
[2021-03-01 06:05] VITALS: BMI 25.4
[2021-03-06 16:34] VITALS: BP 157/90; PULSE 77; RESP 16; O2SAT 96
[2021-03-06 16:36] VITALS: BP 157/90; PULSE 76; RESP 20; TEMP 36.6; O2SAT 96; BMI 27.2
--- NOTE | 2021-03-06 16:52 | CT_ITS ---
STUDY: CT ABDOMEN AND PELVIS WITH CONTRAST REASON FOR EXAM: Male, 85 years old. Epigastric pain RADIATION DOSAGE (If Supplied By Facility): CTDIvol = ( 12.98 ) mGy, DLP = ( 854.54 ) mGycm TECHNIQUE: Transaxial images were obtained from the dome of the diaphragm to the symphysis pubis without oral contrast. IV 100mL Isovue-370 was administered. Sagittal and coronal images were reconstructed. Individualized dose optimization techniques were used for this CT. COMPARISON: None. FINDINGS: The visualized lung bases are unremarkable. The visualized portions of the heart are within normal limits. Normal liver. There is non-visualization of the gallbladder, which may be secondary to either contraction or a prior cholecystectomy. Normal spleen. There is diffuse atrophy of the pancreas. Normal bilateral adrenal glands. Multiple small renal cysts bilaterally. No renal stones or evidence for obstruction. Questionable solid lesion versus prominent calyx/scarring right mid to lower pole series 2 image 53. Normal visualized stomach. Normal small intestine. Normal colon. The appendix is visualized and appears normal. There is diffuse atherosclerotic calcification of the abdominal aorta, without a demonstrated aneurysm. Normal inferior vena cava. Normal retroperitoneum. There is likely a small focus of fat necrosis within the left lower quadrant. Normal urinary bladder. Prominent prostate. There is a right-sided inguinal hernia containing adipose tissue. There are diffuse degenerative changes of the visualized lumbar spine. CT/Abdomen/Pelvis W IV Cont ONLY IMPRESSION: No acute intra-abdominal process is identified. Questionable solid lesion versus prominent calyx/scarring right mid to lower pole kidney series 2 image 53. Consider follow-up renal ultrasound and/or renal mass protocol cross-sectional imaging for further evaluation. Electronically Signed: Lan Murray MD at 18:41 EDT Tel , Service support ,
--- NOTE | 2021-03-06 16:53 | EKG12_ITS ---
Test Reason : ABD. PAIN Blood Pressure : / mmHG Vent. Rate : 069 BPM Atrial Rate : 069 BPM P-R Int : 176 ms QRS Dur : 096 ms QT Int : 408 ms P-R-T Axes : 048 -39 014 degrees QTc Int : 437 ms Normal sinus rhythm Left axis deviation Abnormal ECG Confirmed by RAQUEL CEBALLOS, WILLOW ([id number]), publications editor AN XAVIER ([id number]) on 03/08/2021 12:40:48 P M Referred By: MR Confirmed By:HORTENSIA GARCÍA MD
[2021-03-06] MEDS: Mag Hydrox/Al Hydrox/Simeth 30 ML UDC PO (17:08)
[2021-03-06 17:11] LABS: Absolute Lymphocyte Count 2.18 X10^3/uL (0.83-4.51); Basophil# 0.04 X10^3/uL; Basophil% 0.6 % (0-1); Eosinophil# 0.09 X10^3/uL; Eosinophils% 1.3 % (0-5); Hematocrit 39.7 % (40-54); Hemoglobin 13.1 g/dL (13.0-16.5); Lymphocyte # 2.18 X10^3/ul (0.83-4.51); Lymphocyte % 31.1 % (19-41); Mean Corpuscular Hgb 30.2 pg (27.0-32.0); Mean Corpuscular Volume 91.5 fL (80-94); Mean Platelet Vol. 9.7 fl (6.2-12.0); Monocyte# 0.61 X10^3/uL; Monocyte% 8.7 % (0-10); NRBC Flagged by Analyzer 0 % (0-5); Neutrophil # 4.02 X10^3/uL (2.7-7.7); Neutrophil % 57.4 % (47-70); Platelet Count 354 K/mm3 (150-450); RBC Distribution Width CV 13.2 % (11.6-14.6); RBC Distribution Width SD 44.7 fl (35.1-43.9); Red Blood Count 4.34 M/mm3 (4.6-6.2)
[2021-03-06 17:31] LABS: ALB/GLOB Ratio 0.9 RATIO (0.9-2.4); AST(SGOT) 43 U/L (15-37); Alanine Aminotransfer ALT/SGPT 59 U/L (16-61); Alkaline Phosphatase 77 U/L (45-117); Anion Gap 9 (5-15); BUN 14 mg/dL (7-18); BUN/Creat Ratio 13.7 RATIO (10-20); Calcium,Total 8.7 mg/dL (8.5-10.1); Chloride 105 mmol/L (98-107); Creatinine, Serum 1.02 mg/dL (0.70-1.30); EST Glomerular Filtration Rate 74 mL/min (>60); Est Glom Filt Rate - Afr Amer 89 mL/min (>60); Globulin 3.5 g/dL (2.2-4.2); Glucose 319 mg/dL (74-106); Lipase 41 U/L (73-393); Potassium 4.3 mmol/L (3.5-5.1); Protein, Total 6.5 g/dL (6.4-8.2); Sodium Level 139 mmol/L (136-145)
[2021-03-06 18:34] VITALS: PULSE 62; RESP 14; O2SAT 94
--- NOTE | 2021-03-06 19:09 | EDS_ITS ---
HPI HPI - GI History of Present Illness Chief Complaint: Abd Pain Narrative Narrative: Patient presenting for evaluation secondary to abdominal pain. Patient reports that he has been dealing with abdominal pain over the course of maybe the last month. It is epigastric in location, he states that it will cause some radiation up into his chest. Patient states that it really is somewhat of a continuous pain but seems to be worsening with eating and drinking and specifically eating spicy or greasy foods. Patient does state that he status post cholecystectomy. He denies any fevers chills night sweats or unintended weight loss nausea or vomiting. He does report that he intermittently deals with some constipation, his last normal bowel movement was 2 days ago but he states that that was hard in character. Review of systems otherwise negative. [facility] Medical History BPH (benign prostatic hyperplasia) Constipation Dementia Herpes genitalis in men HTN (hypertension) Hyperlipidemia Non-smoker Rheumatoid arthritis Type 2 diabetes mellitus Vitamin D deficiency Home Medications multivitamin with folic acid [Thera] 1 tab PO DAILY 12/02/13 [History Last Taken Unknown] timolol maleate 1 drp EACH EYE DAILY 12/02/13 [History Last Taken Unknown] acetaminophen 500 mg PO BID 03/01/21 [History Last Taken Unknown] cholecalciferol (vitamin D3) [Vitamin D3] 125 mcg PO DAILY 03/01/21 [History Last Taken Unknown] finasteride [Proscar] 5 mg PO DAILY 03/01/21 [History Last Taken Unknown] glimepiride 4 mg PO BID 03/01/21 [History Last Taken Unknown] loratadine 10 mg PO DAILY 03/01/21 [History Last Taken Unknown] pravastatin 20 mg PO DAILY 03/01/21 [History Last Taken Unknown] tamsulosin 0.4 mg PO DAILY 03/01/21 [History Last Taken Unknown] amlodipine [Norvasc] 2.5 mg PO DAILY #30 tab 03/02/21 [Rx Last Taken Unknown] insulin aspart U-100 [Novolog U-100 Insulin aspart] 10 unit SUBCUT BID #0 ml 03/02/21 [Rx Last Taken Unknown] lisinopril 40 mg PO DAILY #30 tab 03/02/21 [Rx Last Taken Unknown] Basaglar KwikPen U-100 Insulin 18 unit SUBCUT DAILY 03/06/21 [History Last Taken Unknown] omeprazole 40 mg PO DAILY #30 cap 03/06/21 [Rx Last Taken Unknown] Allergy/AdvReac Type Severity Reaction Status Date / Time meloxicam AdvReac Other Verified 03/01/21 06:03 Family History Other Arthritis CVA (cerebral vascular accident) Diabetes Surgical History History of cholecystectomy Social History Smoking Status: Never smoker ROS ROS ED Constitutional Constitutional ED: Denies chills or fever(s) ENT ENT ED: Denies sore throat Cardiovascular Cardiovascular: Denies chest pain Respiratory/Chest Respiratory/Chest: Denies cough or dyspnea Gastrointestinal Gastrointestinal: Reports abdominal pain and constipation; Denies diarrhea or nausea Genitourinary Genitourinary ED: Denies dysuria, hematuria or urinary frequency Musculoskeletal Musculoskeletal: Denies myalgias Integumentary Denies rash Neurologic Neurologic: Denies paresthesias or weakness Psychiatric Psychiatric: Denies depression Endocrine Endocrinology: Denies polyuria Hematologic/Lymphatic Hematologic/Lymphatic: Denies easy bleeding or easy bruising Allergic/Immunologic Allergic/Immunologic ED: Denies urticaria EXAM Physical Exam Const Vital Signs: 03/06/21 16:34 03/06/21 16:36 03/06/21 18:34 Temperature 97.8 F Temperature Source Oral Pulse Rate 77 76 62 Respiratory Rate 16 20 H 14 Blood Pressure 157/90 H 157/90 H Blood Pressure Mean 112 112 Pulse Ox 96 96 94 Oxygen Delivery Method Room Air Room Air Room Air Positive well nourished and well developed General Appearance ED: well developed and NAD HEENT Reports moist mucous membranes normocephalic and atraumatic Eyes EOMs intact bilaterally General Eye ED: Negative for pale conjunctiva or scleral icterus Neck no lymphadenopathy and supple Resp normal respiratory effort and clear to auscultation bilaterally Cardio regular rate, regular rhythm and peripheral pulses 2+ throughout Cardio Narrative: 4 out of 6 systolic murmur GI non-distended and no masses GI Narrative: Tenderness noted in the right upper quadrant and epigastrium no guarding or rebound no palpable masses. Palpation: soft and tender; Negative for guarding, rigid or rebound tenderness present Back/Spine no CVA tenderness Extremity full ROM General Extremety ED: Negative for edema General Extremity: Negative for edema Neuro moves all extremities and no sensory deficits noted Sensorium / Orientation: alert, oriented to person, oriented to place and oriented to time Motor Exam: strength 5/5 throughout Psych mental status grossly normal Skin Rashes: no rashes MDM MDM MDM Narrative Medical decision making narrative: Patient presented secondary to abdominal pain. Patient is elderly, but his symptoms really seem consistent with that of either gastritis or GERD. He was given a GI cocktail. He did have some symptomatic improvement. CBC was unremarkable, chemistry shows normal renal function, electrolytes, liver function, no pathologic elevation of lipase, and a normal troponin. CT abdomen and pelvis was also performed on the patient, this showed no acute process but does show a possible area of scarring or mass on the patient's right kidney which she was informed of and will be needed to be followed up with a ultrasound. Patient at this point I do believe has an element of GERD, he is only on 20 mg of omeprazole I believe that this could be increased and he would have some more relief. Patient will follow up with primary care for reevaluation of his kidney and for response to treatment. Malorie alegre was discharged in stable condition. Lab Data Labs: Laboratory Results - last 24 hr 03/06/21 03/06/21 16:54 16:54 WBC 7.0 RBC 4.34 L Hgb 13.1 Hct 39.7 L MCV 91.5 MCH 30.2 MCHC 33.0 RDW Std Deviation 44.7 H RDW Coeff of Susi 13.2 Plt Count 354 MPV 9.7 Immature Gran % (Auto) 0.900 Neut % (Auto) 57.4 Lymph % (Auto) 31.1 [place] % (Auto) 8.7 Eos % (Auto) 1.3 Baso % (Auto) 0.6 Absolute Neuts (auto) 4.0 Absolute Lymphs (auto) 2.18 Nucleated RBC % 0 Sodium 139 Potassium 4.3 Chloride 105 Carbon Dioxide 25.0 Anion Gap 9 BUN 14 Creatinine 1.02 Estim Creat Clear Calc 49.50 Est GFR (MDRD) Af Amer 89 Est GFR (MDRD) Non-Af 74 BUN/Creatinine Ratio 13.7 Glucose 319 H Calcium 8.7 Total Bilirubin 0.20 AST 43 H ALT 59 Alkaline Phosphatase 77 Troponin I < 0.015 Total Protein 6.5 Albumin 3.0 L Globulin 3.5 Albumin/Globulin Ratio 0.9 Lipase 41 L Radiography Diagnostic Testing: Radiology Impression Abdomen/Pelvis CT 03/06/21 16:52 IMPRESSION: No acute intra-abdominal process is identified. Questionable solid lesion versus prominent calyx/scarring right mid to lower pole kidney series 2 image 53. Consider follow-up renal ultrasound and/or renal mass protocol cross-sectional imaging for further evaluation. Electronically Signed: Lan Murray MD at 18:41 EDT Tel , Service support , EKG Initial EKG: Attestation: I personally reviewed and interpreted this EKG as follows: (Normal sinus rhythm at [address] segments normal T waves normal DC and QTc intervals no evidence of acute ischemia or arrhythmia, no changes from prior EKG on March 01 of this year.) Discharge Plan Triage Chief Complaint: Abd Pain ED Provider: Miguel Meier Dx/Rx/DC Orders Clinical Impression: Gastroesophageal reflux disease, Renal scarring Instructions: ED GERD (Adult) Prescriptions: New omeprazole 40 mg capsule,delayed release(DR/EC) 40 mg PO DAILY Qty: 30 RF: 0 Discontinued omeprazole 20 mg Capsule,Delayed Release(Dr/Ec) 20 mg PO DAILY RF: 0 No Action timolol maleate 1 DROP drops 1 drp Each Eye DAILY RF: 0 multivitamin with folic acid [Thera] 1 TABLET tablet 1 tab PO DAILY RF: 0 acetaminophen 500 mg Tablet 500 mg PO BID RF: 0 tamsulosin 0.4 mg Capsule 0.4 mg PO DAILY RF: 0 glimepiride 4 mg tablet 4 mg PO BID RF: 0 pravastatin 20 mg tablet 20 mg PO DAILY RF: 0 finasteride [Proscar] 5 mg tablet 5 mg PO DAILY RF: 0 loratadine 10 mg Tablet 10 mg PO DAILY RF: 0 cholecalciferol (vitamin D3) [Vitamin D3] 125 mcg (5,000 unit) Tablet 125 mcg PO DAILY RF: 0 lisinopril 40 mg tablet 40 mg PO DAILY Qty: 30 RF: 0 amlodipine [Norvasc] 2.5 mg tablet 2.5 mg PO DAILY Qty: 30 RF: 0 insulin aspart U-100 [Novolog U-100 Insulin aspart] 100 unit/mL Solution 10 unit SUBCUT BID Qty: 0 RF: 0 Basaglar AngelikPen U-100 Insulin 100 unit/mL (3 mL) insulin pen 18 unit SUBCUT DAILY RF: 0 Primary Care Provider: Alfonzo Mora Referrals: Alfonzo Mora MD [Primary Care Provider] - 1 Week (Follow-up to ensure response to treatment as well as to be evaluated for your right sided renal lesion that requires an ultrasound) Disposition Disposition: Care Home Facility Discharge Location: [facility]
--- NOTE | 2021-03-06 19:28 | ED.RN ---
THIS RN CALLED [facility] AND SPOKE WITH NURSE ROTH ON PT STATUS AND DISPOSITON.
[2021-03-06 20:52] VITALS: BP 166/86; PULSE 74; RESP 16; O2SAT 97
--- NOTE | 2021-03-06 20:59 | ED.RN ---
REport given to physicians ambulance crew
== END 2021-03-06 21:00 | disposition skilled nursing facility (03) ==
PROVIDERS: Emergency Provider Emergency Medicine; PCP Family Medicine
DX: K21.9 Gastro-esophageal reflux disease without esophagitis (principal); N28.89 Other specified disorders of kidney and ureter; I10 Essential (primary) hypertension; E11.9 Type 2 diabetes mellitus without complications; E55.9 Vitamin D deficiency, unspecified; E78.5 Hyperlipidemia, unspecified; F03.90 Unspecified dementia, unspecified severity, without behavioral disturbance, psychotic disturbance, mood disturbance, and anxiety; K59.00 Constipation, unspecified; M06.9 Rheumatoid arthritis, unspecified; N40.0 Benign prostatic hyperplasia without lower urinary tract symptoms; Z90.49 Acquired absence of other specified parts of digestive tract; Z79.4 Long term (current) use of insulin; Z79.899 Other long term (current) drug therapy
CPT/HCPCS: 74177; 80053; 83690; 84484; 85025; 93005; 99285; Q9967; A4216

== ENCOUNTER → 2021-03-21 05:00 | Outpatient (REF) | payer MEDICARE, OTHER, SELFPAY ==
[2021-03-06 16:36] VITALS: BMI 27.2
[2021-03-21 07:58] LABS: Hematocrit 38.5 % (40-54); Hemoglobin 12.7 g/dL (13.0-16.5); Mean Platelet Vol. 10.6 fl (6.2-12.0); Platelet Count 338 K/mm3 (150-450); RBC Distribution Width CV 13.4 % (11.6-14.6); RBC Distribution Width SD 45.1 fl (35.1-43.9); Red Blood Count 4.23 M/mm3 (4.6-6.2); White Blood Count 7.4 K/mm3 (4.4-11.0)
[2021-03-21 08:08] LABS: ALB/GLOB Ratio 0.8 RATIO (0.9-2.4); AST(SGOT) 22 U/L (15-37); Alanine Aminotransfer ALT/SGPT 46 U/L (16-61); Alkaline Phosphatase 80 U/L (45-117); Amylase 25 U/L (25-115); Anion Gap 8 (5-15); BUN 18 mg/dL (7-18); BUN/Creat Ratio 20.7 RATIO (10-20); Chloride 102 mmol/L (98-107); Creatinine, Serum 0.87 mg/dL (0.70-1.30); EST Glomerular Filtration Rate 89 mL/min (>60); Est Glom Filt Rate - Afr Amer 107 mL/min (>60); Globulin 3.8 g/dL (2.2-4.2); Glucose 230 mg/dL (74-106); Lipase 34 U/L (73-393); Potassium 4.4 mmol/L (3.5-5.1); Protein, Total 6.8 g/dL (6.4-8.2); Sodium Level 137 mmol/L (136-145)
[2021-03-22 17:17] LABS: Hemoglobin A1c 10.5 % (3.8-5.6)
== END ==
LOC: OLS.BROOKB 05:00
PROVIDERS: PCP Family Medicine; Visit Provider Family Medicine
DX: F03.90 Unspecified dementia, unspecified severity, without behavioral disturbance, psychotic disturbance, mood disturbance, and anxiety (principal); E11.9 Type 2 diabetes mellitus without complications; R10.9 Unspecified abdominal pain
CPT/HCPCS: 36415; 80053; 82150; 83036; 83690; 85027

== ENCOUNTER → 2021-05-03 16:30 | Outpatient (REF) | payer MEDICARE, OTHER, SELFPAY ==
[2021-05-04 14:22] LABS: Bacteria 0 SEEN /hpf (None Seen); Mucous, Urine 0 SEEN /hpf (<or=2+); Red Blood Cells-Urine 0 SEEN /hpf (0-5); Squamous Epithelial Cells - UA 0 SEEN /hpf (0-5); White Blood Cells 0 SEEN /hpf (0-5)
[2021-05-04 14:45] LABS: Color, Urine Yellow (Yellow); Glucose, Dipstick 1000 mg/dl (Normal); Ketone-Dipstick Negative (Negative); Leukocyte Esterase-Dipstick Negative /ul (Negative); Nitrite-Dipstick Negative (Negative); Occult Blood-Urine Negative /ul (Negative); Protein-Dipstick Negative (Negative); Urine Bilirubin Dipstick Negative (Negative); Urine Clarity Clear (Clear); Urine Urobilinogen Normal (Normal)
== END ==
LOC: OLS.BROOKB 16:30
PROVIDERS: PCP Family Medicine; Visit Provider Family Medicine
DX: N39.0 Urinary tract infection, site not specified (principal); R35.0 Frequency of micturition
CPT/HCPCS: 81001; 87086; 87088

== ENCOUNTER → 2021-05-08 05:00 | Outpatient (REF) | payer MEDICARE, OTHER, SELFPAY ==
[2021-05-08 08:42] LABS: Hemoglobin A1c 8.2 % (3.8-5.6)
== END ==
LOC: OLS.BROOKB 05:00
PROVIDERS: PCP Family Medicine; Visit Provider Family Medicine
DX: E11.9 Type 2 diabetes mellitus without complications (principal)
CPT/HCPCS: 36415; 83036

== ENCOUNTER → 2021-05-13 05:00 | Outpatient (REF) | payer MEDICARE, OTHER, SELFPAY ==
[2021-05-13 08:49] LABS: AST(SGOT) 15 U/L (15-37); Alanine Aminotransfer ALT/SGPT 29 U/L (16-61); Anion Gap 6 (5-15); BUN 18 mg/dL (7-18); Calcium,Total 8.7 mg/dL (8.5-10.1); Chloride 108 mmol/L (98-107); Cholesterol 176 mg/dL (200); Creatinine, Serum 0.86 mg/dL (0.70-1.30); EST Glomerular Filtration Rate 90 mL/min (>60); Est Glom Filt Rate - Afr Amer 109 mL/min (>60); Glucose 184 mg/dL (74-106); Hemoglobin A1c 8.2 % (3.8-5.6); High Density Lipoprotein 42 mg/dL; Potassium 4.1 mmol/L (3.5-5.1); Sodium Level 139 mmol/L (136-145); Triglycerides 139 mg/dL; Very Low Density Lipoprotein 28 mg/dL (5-40)
[2021-05-14 07:12] LABS: Microalbumin,Random Urine 53.6 mg/L (NO RANGE EST.)
== END ==
LOC: OLS.BROOKB 05:00
PROVIDERS: PCP Family Medicine; Visit Provider Family Medicine
DX: E11.9 Type 2 diabetes mellitus without complications (principal); E78.5 Hyperlipidemia, unspecified
CPT/HCPCS: 36415; 80048; 80061; 82043; 83036; 84450; 84460

== ENCOUNTER → 2021-07-10 12:31 | Outpatient (CLI) | payer MEDICARE, OTHER, SELFPAY ==
--- NOTE | 2021-07-10 12:40 | RAD_ITS ---
STUDY: X-RAY - LUMBAR SPINE REASON FOR EXAM: Male, 86 years old. Chronic low back pain. TECHNIQUE: view(s) of the lumbar spine were obtained. COMPARISON: None FINDINGS: Normal lumbar lordosis. There is a mild dextroscoliosis of the lumbar spine. There is a normal alignment of the vertebrae. There is multilevel endplate spondylosis of the lumbar vertebrae. There is multi-level degenerative disc disease with multi-level disc space narrowing. Facet joint osteoarthritis. There is atherosclerotic calcification of the abdominal aorta without a demonstrated aneurysm. RAD/Lumbar Spine 2 or 3 Views IMPRESSION: Degenerative changes of the spine, as detailed above. Mild dextroscoliosis. Electronically Signed: Ajay Dumont MD at 15:45 EDT , Service support ,
== END ==
PROVIDERS: PCP Family Medicine; Referring Provider Anesthesiology Pain Medicine; Visit Provider Anesthesiology Pain Medicine
DX: M54.9 Dorsalgia, unspecified (principal)
CPT/HCPCS: 72100

== ENCOUNTER → 2021-09-19 05:00 | Outpatient (REF) | payer MEDICARE, OTHER, SELFPAY ==
[2021-09-19 08:37] LABS: Hematocrit 35.1 % (40-54); Hemoglobin 11.6 g/dL (13.0-16.5); Mean Corpuscular Hgb 29.3 pg (27.0-32.0); Mean Corpuscular Volume 88.6 fL (80-94); Platelet Count 336 K/mm3 (150-450); RBC Distribution Width CV 14.2 % (11.6-14.6); RBC Distribution Width SD 45.7 fl (35.1-43.9); Red Blood Count 3.96 M/mm3 (4.6-6.2); White Blood Count 7.6 K/mm3 (4.4-11.0)
[2021-09-19 08:53] LABS: Anion Gap 7 (5-15); BUN 17 mg/dL (7-18); BUN/Creat Ratio 22.8 RATIO (10-20); Calcium,Total 8.5 mg/dL (8.5-10.1); Chloride 108 mmol/L (98-107); Creatinine, Serum 0.75 mg/dL (0.70-1.30); EST Glomerular Filtration Rate 105 mL/min (>60); Est Glom Filt Rate - Afr Amer 128 mL/min (>60); Glucose 118 mg/dL (74-106); Potassium 3.3 mmol/L (3.5-5.1); Sodium Level 141 mmol/L (136-145)
== END ==
LOC: OLS.BROOKB 05:00
PROVIDERS: PCP Family Medicine; Visit Provider Family Medicine
DX: R53.83 Other fatigue (principal)
CPT/HCPCS: 36415; 80048; 85027

== ENCOUNTER 2021-10-22 22:43 | Emergency (ER) | payer MEDICARE, OTHER, SELFPAY ==
[2021-10-22 22:46] VITALS: BP 182/99; PULSE 89; RESP 16; TEMP 36.5; O2SAT 96; BMI 31.3
[2021-10-22 22:49] VITALS: BP 182/99; PULSE 92; RESP 18; O2SAT 96
--- NOTE | 2021-10-22 22:59 | CT_ITS ---
EXAM: CT HEAD WITHOUT INTRAVENOUS CONTRAST CLINICAL INDICATION: dizziness TECHNIQUE: Multiple axial images were obtained of the head without intravenous contrast. CTDIvol = ( 44.99 ) mGy, DLP = ( 796.11 ) mGycm This CT exam was performed using one or more of the following dose reduction techniques: automated exposure control, adjustment of the mA and/or kV according to patient size, and/or use of iterative reconstruction technique. This report was created using [employer] report generation technology. COMPARISON: None. FINDINGS: BRAIN AND EXTRA-AXIAL SPACES: No acute intracranial hemorrhage, mass effect or edema. No evidence of acute cortical stroke. Periventricular small vessel ischemic change. No midline shift. Diffuse parenchymal atrophy. Ventriculomegaly can be seen with normal pressure hydrocephalus in the appropriate clinical setting or severe central parenchyma atrophy. Posterior fossa structures are unremarkable. Basal cisterns are patent. BONES/JOINTS: Unremarkable. No discrete lytic or blastic abnormalities. VASCULATURE: Atherosclerotic calcifications of the carotid siphons and vertebrobasilar arteries. SINUSES: Mucosal thickening involving the paranasal sinuses. No air-fluid levels. MASTOID AIR CELLS: Visualized sinuses and mastoid air cells are clear. ORBITS: Visualized globes, extraocular muscles, optic nerves and retrobulbar fat appear unremarkable. CT/Brain/Head without Contrast IMPRESSION: 1. No evidence of acute intracranial pathology. 2. Ventriculomegaly can be seen with normal pressure hydrocephalus in the appropriate clinical setting or severe central parenchyma atrophy. 3. Diffuse involutional changes and chronic ischemic small vessel white matter disease. Electronically Signed: Claudio Messer MD at 23:42 EST Tel , Service support ,
--- NOTE | 2021-10-22 22:59 | EKG12_ITS ---
Test Reason : DIZZINESS Blood Pressure : / mmHG Vent. Rate : 087 BPM Atrial Rate : 087 BPM P-R Int : 176 ms QRS Dur : 088 ms QT Int : 374 ms P-R-T Axes : 035 -43 016 degrees QTc Int : 450 ms Normal sinus rhythm Left axis deviation Abnormal ECG Confirmed by FATIMAH CEABLLOS, EDWIN ([id number]), design editor RADHA REA ([id number]) on 10/25/2021 9:58:21 AM Referred By: LIZZY Confirmed By:EDWIN SHERIDAN MD
--- NOTE | 2021-10-22 22:59 | RAD_ITS ---
EXAM: XR CHEST, 1 VIEW CLINICAL INDICATION: cough TECHNIQUE: Frontal view of the chest. This report was created using [email or web address] report generation technology. COMPARISON: 02/28/2021 chest x-ray. FINDINGS: LUNGS AND PLEURAL SPACES: Groundglass opacities involving the right mid to lower lung. Linear opacities at the bases probably represent scarring or subsegmental atelectasis. Possible small right pleural effusion. No left effusion. No pneumothorax. HEART: Unremarkable. Cardiac silhouette not enlarged. MEDIASTINUM: Central airways and mediastinal contour are unremarkable. BONES/JOINTS: Degenerative changes acromioclavicular joints and spine. SOFT TISSUES: Unremarkable. RAD/Chest 1 View (Portable) IMPRESSION: Right multilobar pneumonia suspected in the appropriate clinical setting. Electronically Signed: Claudio Messer MD at 23:29 EST Tel , Service support ,
--- NOTE | 2021-10-22 23:00 | EX.ED.DYSGE1 ---
HPI History of Present Illness Chief Complaint: Dizziness Informant: patient Narrative Narrative: Brought by EMS from [facility] for evaluation unsteady gait per patient. Reported mechanical fall few days ago no injuries. This evening he states after going from the bathroom felt unsteady with his left side. Denies headache. Denies speech changes.. History of dementia however alert and oriented x3. From paperwork he is a DNR comfort care only. He states he has urine frequency however this is not atypical for him. No vomiting or diarrhea. Mild cough. No fevers. Reported blood glucose was in the 400s he is given his nighttime Lantus dose. EMS blood glucose 240s. He is a diabetic. Prior similar symptoms: No PFSH PFSH Medical History BPH (benign prostatic hyperplasia) Constipation Dementia Herpes genitalis in men HTN (hypertension) Hyperlipidemia Non-smoker Rheumatoid arthritis Type 2 diabetes mellitus Vitamin D deficiency Home Medications multivitamin with folic acid [Thera] 1 tab PO DAILY 12/02/13 [History Last Taken Unknown] timolol maleate 1 drp EACH EYE DAILY 12/02/13 [History Last Taken Unknown] acetaminophen 500 mg PO BID 03/01/21 [History Last Taken Unknown] cholecalciferol (vitamin D3) [Vitamin D3] 125 mcg PO DAILY 03/01/21 [History Last Taken Unknown] finasteride [Proscar] 5 mg PO DAILY 03/01/21 [History Last Taken Unknown] glimepiride 4 mg PO BID 03/01/21 [History Last Taken Unknown] loratadine 10 mg PO DAILY 03/01/21 [History Last Taken Unknown] pravastatin 20 mg PO DAILY 03/01/21 [History Last Taken Unknown] tamsulosin 0.4 mg PO DAILY 03/01/21 [History Last Taken Unknown] amlodipine [Norvasc] 2.5 mg PO DAILY #30 tab 03/02/21 [Rx Last Taken Unknown] insulin aspart U-100 [Novolog U-100 Insulin aspart] 10 unit SUBCUT BID #0 ml 03/02/21 [Rx Last Taken Unknown] lisinopril 40 mg PO DAILY #30 tab 03/02/21 [Rx Last Taken Unknown] Basaglar KwikPen U-100 Insulin 18 unit SUBCUT DAILY 03/06/21 [History Last Taken Unknown] omeprazole 40 mg PO DAILY #30 cap 03/06/21 [Rx Last Taken Unknown] Allergy/AdvReac Type Severity Reaction Status Date / Time meloxicam AdvReac Other Verified 10/22/21 22:46 Family History Other Arthritis CVA (cerebral vascular accident) Diabetes Surgical History History of cholecystectomy Social History Smoking Status: Never smoker ROS ROS ED Constitutional Constitutional ED: Denies chills, fever(s) or sweats Eyes Eyes: Denies change in vision ENT ENT ED: Denies dysphagia or sore throat Cardiovascular Cardiovascular: Denies chest pain, leg edema, palpitations or racing heartbeat Respiratory/Chest Respiratory/Chest: Denies cough, dyspnea or dyspnea on exertion Gastrointestinal Gastrointestinal: Denies abdominal pain, diarrhea, nausea or vomiting Genitourinary Genitourinary ED: Reports urinary frequency; Denies dysuria or hematuria Musculoskeletal Musculoskeletal: Denies back pain, extremity pain or neck pain Integumentary Denies rash or wounds Neurologic Neurologic: Reports other Details: Dizziness ; Denies headache(s), paresthesias or weakness EXAM Physical Exam Const Vital Signs: 10/22/21 22:46 10/22/21 22:49 10/23/21 02:32 Temperature 97.7 F L Temperature Source Temporal Pulse Rate 89 92 93 Respiratory Rate 16 18 18 Respiratory Effort Normal Respiratory Pattern Normal Blood Pressure 182/99 H 182/99 H 112/87 H Blood Pressure Mean 126 126 Pulse Ox 96 96 99 Oxygen Delivery Method Room Air Room Air Positive well nourished and well developed General Appearance ED: well developed and NAD HEENT Reports moist mucous membranes normocephalic and atraumatic Eyes PERRL, EOMs intact bilaterally and conjunctivae normal General Eye ED: Yes normal appearance of both eyes Neck no lymphadenopathy and supple General: Negative for tenderness Chest Wall Chest: Negative for tenderness Resp normal respiratory effort and normal air movement Effort and Inspection: symmetric chest movement; Negative for respiratory distress Cardio regular rate, regular rhythm and no murmurs Peripheral Pulses: pulses 2+ throughout GI normal to inspection, nondistended, normoactive bowel sounds and non-tender Palpation: Negative for guarding or rebound tenderness present Back/Spine no CVA tenderness and no thoracic nor lumbar tenderness Extremity normal to inspection General Extremety ED: Negative for edema or tenderness General Extremity: Negative for edema Neuro oriented x3, CN's II-XII intact bilaterally and no sensory deficits noted Neuro Narrative: NIH equals 0. Normal cerebellar upper and lower extremities. Sensorium / Orientation: awake and alert Skin no rashes or lesions noted and no wounds MDM MDM MDM Narrative Medical decision making narrative: Patient NIH equals 0. No focal neurological deficits. CT scan notes ventriculomegaly, there is no old for comparison. Chest x-ray reported potential multilobar infiltrates on the right side. Dry cough. No fevers. White count is normal. I did check Covid test which was negative he said 3 days intermittent cough. He is vaccinated per the son. Labs are stable urine negative for infection. Glucose 268 normal anion gap. Patient was ambulated with a cane, reported short shuffling gait, however no instability. He is a DNR CC, I did discuss the ventriculomegaly with the son, if symptoms progress, potentially can have further evaluation due to findings however not likely surgical candidate with his status. Patient does have a walker at the facility for which I recommended use for stability. All questions were answered. Patient is being discharged under pandemic conditions under declared global, national and state disaster activation, with limited medical resources. Patient and community understands this. Results discussed in layman's terms to the patient satisfaction. All questions answered in layman's terms. Patient understands importance of follow-up care as directed. Patient has been instructed to return to the ED immediately if new symptoms, problems, or questions occur. We mutually agree with the plan of disposition. The patient understand that they may call or return with any questions or concerns at any time. Lab Data Attestation: I reviewed the patient's lab results. Labs: Laboratory Results - last 24 hr 10/22/21 10/22/21 10/23/21 23:00 23:00 00:33 WBC 7.7 RBC 4.52 L Hgb 13.3 Hct 40.6 MCV 89.8 MCH 29.4 MCHC 32.8 RDW Std Deviation 46.4 H RDW Coeff of Susi 14.1 Plt Count 394 MPV 10.0 Immature Gran % (Auto) 1.300 H Neut % (Auto) 59.8 Lymph % (Auto) 27.2 [place] % (Auto) 9.3 Eos % (Auto) 1.6 Baso % (Auto) 0.8 Absolute Neuts (auto) 4.6 Absolute Lymphs (auto) 2.10 Nucleated RBC % 0 Sodium 139 Potassium 4.0 Chloride 102 Carbon Dioxide 28.0 Anion Gap 9 BUN 14 Creatinine 1.00 Estim Creat Clear Calc 49.58 Est GFR (MDRD) Af Amer 91 Est GFR (MDRD) Non-Af 75 BUN/Creatinine Ratio 14.0 Glucose 260 H Calcium 9.3 Total Bilirubin 0.40 AST 20 ALT 31 Alkaline Phosphatase 88 Total Protein 7.8 Albumin 3.5 Globulin 4.3 H Albumin/Globulin Ratio 0.8 L Urine Color Yellow Urine Clarity Clear Urine pH 7.0 Ur Specific [place] 1.010 Urine Protein Negative Urine Glucose (UA) 1000 H Urine Ketones Negative Urine Occult Blood Negative Urine Nitrite Negative Urine Bilirubin Negative Urine Urobilinogen Normal Ur Leukocyte Esterase Negative Urine RBC 0 SEEN Urine WBC 0 SEEN Ur Squamous Epith Cells 0 SEEN Urine Bacteria 0 SEEN Urine Mucus 0 SEEN Radiography Chest X-Ray - ED: 1 View, Read by ED Physician and Read by Radiologist Diagnostic Testing: Clinical Impression(s) from Imaging Studies Brain CT 10/22/21 22:59 IMPRESSION: 1. No evidence of acute intracranial pathology. 2. Ventriculomegaly can be seen with normal pressure hydrocephalus in the appropriate clinical setting or severe central parenchyma atrophy. 3. Diffuse involutional changes and chronic ischemic small vessel white matter disease. Electronically Signed: Claudio Messer MD at 23:42 EST Tel , Service support , Chest X-Ray 10/22/21 22:59 IMPRESSION: Right multilobar pneumonia suspected in the appropriate clinical setting. Electronically Signed: Claudio Messer MD at 23:29 EST Tel , Service support , EKG Initial EKG: Attestation: I personally reviewed and interpreted this EKG as follows: Comments: Sinus rate of 87, no ST or T wave changes. Discharge Plan Triage Chief Complaint: Dizziness ED Provider: Nestor Berumen Dx/Rx/DC Orders Clinical Impression: Dizziness, Cerebral ventriculomegaly, History of diabetes mellitus Instructions: ED Dizziness, Uncertain Cause Prescriptions: No Action timolol maleate 1 DROP drops 1 drp Each Eye DAILY RF: 0 multivitamin with folic acid [Thera] 1 TABLET tablet 1 tab PO DAILY RF: 0 acetaminophen 500 mg Tablet 500 mg PO BID RF: 0 tamsulosin 0.4 mg Capsule 0.4 mg PO DAILY RF: 0 glimepiride 4 mg tablet 4 mg PO BID RF: 0 pravastatin 20 mg tablet 20 mg PO DAILY RF: 0 finasteride [Proscar] 5 mg tablet 5 mg PO DAILY RF: 0 loratadine 10 mg Tablet 10 mg PO DAILY RF: 0 cholecalciferol (vitamin D3) [Vitamin D3] 125 mcg (5,000 unit) Tablet 125 mcg PO DAILY RF: 0 lisinopril 40 mg tablet 40 mg PO DAILY Qty: 30 RF: 0 amlodipine [Norvasc] 2.5 mg tablet 2.5 mg PO DAILY Qty: 30 RF: 0 insulin aspart U-100 [Novolog U-100 Insulin aspart] 100 unit/mL Solution 10 unit SUBCUT BID Qty: 0 RF: 0 Basaglar KwikPen U-100 Insulin 100 unit/mL (3 mL) insulin pen 18 unit SUBCUT DAILY RF: 0 omeprazole 40 mg capsule,delayed release(DR/EC) 40 mg PO DAILY Qty: 30 RF: 0 Primary Care Provider: Kassie Olivier Referrals: Kassie Olivier MD [Primary Care Provider] - 3-5 Days Activity Restrictions/Additional Instructions: Ventriculomegaly on CT scan. Will need to be followed for any clinical progression. Will likely use a walker for more stability at this time. Urine negative. Chest x-ray reported possible pneumonia however clinically not there. Normal white count, oxygen normal. Blood work stable. Follow-up with physicians at facility. Disposition Disposition: Shelter Facility Discharge Location: [facility] Discharge Date/Time: 10/23/21 02:33
[2021-10-22 23:24] LABS: ALB/GLOB Ratio 0.8 RATIO (0.9-2.4); AST(SGOT) 20 U/L (15-37); Alanine Aminotransfer ALT/SGPT 31 U/L (16-61); Albumin, Serum 3.5 g/dL (3.2-5.0); Alkaline Phosphatase 88 U/L (45-117); Anion Gap 9 (5-15); BUN 14 mg/dL (7-18); Calcium,Total 9.3 mg/dL (8.5-10.1); Chloride 102 mmol/L (98-107); EST Glomerular Filtration Rate 75 mL/min (>60); Est Glom Filt Rate - Afr Amer 91 mL/min (>60); Estimated Creatinine Clearance 49.58 ml/min; Globulin 4.3 g/dL (2.2-4.2); Glucose 260 mg/dL (74-106); Protein, Total 7.8 g/dL (6.4-8.2); Sodium Level 139 mmol/L (136-145)
[2021-10-22 23:44] LABS: Absolute Neutrophil Count 4.6 X10^3/uL (2.0-7.7); Basophil# 0.06 X10^3/uL; Basophil% 0.8 % (0-1); Eosinophil# 0.12 X10^3/uL; Eosinophils% 1.6 % (0-5); Hematocrit 40.6 % (40-54); Hemoglobin 13.3 g/dL (13.0-16.5); Lymphocyte % 27.2 % (19-41); Mean Corp Hgb Conc 32.8 g/dL (32-36); Mean Corpuscular Hgb 29.4 pg (27.0-32.0); Mean Corpuscular Volume 89.8 fL (80-94); Monocyte# 0.72 X10^3/uL; Monocyte% 9.3 % (0-10); NRBC Flagged by Analyzer 0 % (0-5); Neutrophil # 4.61 X10^3/uL (2.7-7.7); Neutrophil % 59.8 % (47-70); Platelet Count 394 K/mm3 (150-450); RBC Distribution Width CV 14.1 % (11.6-14.6); RBC Distribution Width SD 46.4 fl (35.1-43.9); Red Blood Count 4.52 M/mm3 (4.6-6.2); White Blood Count 7.7 K/mm3 (4.4-11.0)
[2021-10-23 00:41] LABS: Bacteria 0 SEEN /hpf (None Seen); Mucous, Urine 0 SEEN /hpf (<or=2+); Red Blood Cells-Urine 0 SEEN /hpf (0-5); Squamous Epithelial Cells - UA 0 SEEN /hpf (0-5); White Blood Cells 0 SEEN /hpf (0-5)
[2021-10-23 00:43] LABS: Color, Urine Yellow (Yellow); Glucose, Dipstick 1000 mg/dl (Normal); Ketone-Dipstick Negative (Negative); Leukocyte Esterase-Dipstick Negative /ul (Negative); Nitrite-Dipstick Negative (Negative); Occult Blood-Urine Negative /ul (Negative); Protein-Dipstick Negative (Negative); Urine Bilirubin Dipstick Negative (Negative); Urine Clarity Clear (Clear); Urine Urobilinogen Normal (Normal)
[2021-10-23 02:32] VITALS: BP 112/87; PULSE 93; RESP 18; O2SAT 99
== END 2021-10-23 02:33 | disposition skilled nursing facility (03) ==
PROVIDERS: Emergency Provider Emergency Medicine; PCP Family Medicine; Visit Provider Emergency Medicine
DX: R42 Dizziness and giddiness (principal); M06.9 Rheumatoid arthritis, unspecified; F03.90 Unspecified dementia, unspecified severity, without behavioral disturbance, psychotic disturbance, mood disturbance, and anxiety; E11.9 Type 2 diabetes mellitus without complications; Z79.4 Long term (current) use of insulin; R26.81 Unsteadiness on feet; I10 Essential (primary) hypertension; E78.5 Hyperlipidemia, unspecified; N40.0 Benign prostatic hyperplasia without lower urinary tract symptoms; E55.9 Vitamin D deficiency, unspecified; Z79.899 Other long term (current) drug therapy; Z66 Do not resuscitate; G93.89 Other specified disorders of brain
CPT/HCPCS: 70450; 71045; 80053; 81001; 85025; 87426; 93005; 99285

== ENCOUNTER → 2021-11-14 | Outpatient (REF) | payer MEDICARE, OTHER, SELFPAY ==
[2021-11-14 12:43] LABS: AST(SGOT) 22 U/L (15-37); Alanine Aminotransfer ALT/SGPT 45 U/L (16-61); Anion Gap 6 (5-15); BUN 13 mg/dL (7-18); BUN/Creat Ratio 13.7 RATIO (10-20); Calcium,Total 8.8 mg/dL (8.5-10.1); Chloride 105 mmol/L (98-107); Cholesterol 138 mg/dL (200); Creatinine, Serum 0.95 mg/dL (0.70-1.30); EST Glomerular Filtration Rate 80 mL/min (>60); Est Glom Filt Rate - Afr Amer 97 mL/min (>60); Glucose 238 mg/dL (74-106); High Density Lipoprotein 38 mg/dL; Potassium 4.1 mmol/L (3.5-5.1); Sodium Level 137 mmol/L (136-145); Triglycerides 143 mg/dL; Very Low Density Lipoprotein 29 mg/dL (5-40)
[2021-11-14 14:07] LABS: Hemoglobin A1c 9.1 % (3.8-5.6)
== END | disposition home or self-care (01) ==
LOC: OLS.BROOKB 11:15
PROVIDERS: PCP Family Medicine; Visit Provider Family Medicine
DX: E11.9 Type 2 diabetes mellitus without complications (principal); E78.5 Hyperlipidemia, unspecified
CPT/HCPCS: 36415; 80048; 80061; 83036; 84450; 84460

== ENCOUNTER 2021-11-17 08:58 | Emergency (ER) | payer MEDICARE, OTHER, SELFPAY ==
[2021-11-17] VITALS (9 sets, daily range): BP systolic 146–176; BP diastolic 86–101; PULSE 115–121; RESP 18–23; TEMP 38.4–38.6; O2SAT 94–95; BMI 29.3
--- NOTE | 2021-11-17 09:17 | RAD_ITS ---
STUDY: X-RAY CHEST REASON FOR EXAM: Male, 86 years old. Cough TECHNIQUE: Single AP portable view of the chest. COMPARISON: October 22, 2021 chest x-ray FINDINGS: The lungs are clear and expanded. There is no demonstrated pleural abnormality. Normal size heart. Normal mediastinum and rosalind. Normal visualized pulmonary arteries. There is atherosclerotic calcification of the aortic arch with tortuosity. There are diffuse degenerative changes of the visualized thoracic spine. Normal visualized ribs, clavicles, and shoulders. There is no demonstrated abnormality of the visualized soft tissue structures of the upper abdomen. RAD/Chest 1 View (Portable) IMPRESSION: Degenerative changes, as described above. No demonstrated acute cardiopulmonary process. Electronically Signed: Alejandra Callejas MD at 10:05 EST ,
--- NOTE | 2021-11-17 09:17 | EKG12_ITS ---
Test Reason : UTI Blood Pressure : / mmHG Vent. Rate : 116 BPM Atrial Rate : 116 BPM P-R Int : 174 ms QRS Dur : 084 ms QT Int : 312 ms P-R-T Axes : 047 -39 074 degrees QTc Int : 433 ms Sinus tachycardia Left axis deviation Abnormal ECG Confirmed by FATIMAH CEBALLOS, EDWIN ([id number]), legal editor AN XAVEIR ([id number]) on 11/18/2021 10:10:57 AM Referred By: Confirmed By:EDWIN SHERIDAN MD
--- NOTE | 2021-11-17 09:19 | EX.ED.DYSGE1 ---
HPI History of Present Illness Chief Complaint: General Illness Informant: EMS and SNF Narrative Narrative: 86-year-old male with a history of diabetes and dementia presented to the emergency department by EMS. He is from the memory unit at [facility]. EMS states that he has been being treated for a urinary tract infection but has been unable to take his medications due to a sore throat. custodial did not call report so history is only from EMS. The paperwork that accompanies the patient states that he should be having antibiotics for pneumonia. Nursing will call the facility and try to figure out what is going on. [facility] Medical History BPH (benign prostatic hyperplasia) Constipation Dementia Herpes genitalis in men HTN (hypertension) Hyperlipidemia Non-smoker Rheumatoid arthritis Type 2 diabetes mellitus Vitamin D deficiency Home Medications acetaminophen 1,000 mg PO TID 11/17/21 [History Last Taken Unknown] amlodipine 2.5 mg PO DAILY 11/17/21 [History Last Taken Unknown] calcium carbonate [Calcium Antacid] 200 mg PO Q4H PRN 11/17/21 [History Last Taken Unknown] cholecalciferol (vitamin D3) [Vitamin D3] 125 mcg PO DAILY 11/17/21 [History Last Taken Unknown] docusate sodium 100 mg PO BID 11/17/21 [History Last Taken Unknown] doxepin 25 mg PO QHS 11/17/21 [History Last Taken Unknown] finasteride 5 mg PO DAILY 11/17/21 [History Last Taken Unknown] glimepiride 4 mg PO BID 11/17/21 [History Last Taken Unknown] insulin aspart U-100 [Novolog Flexpen U-100 Insulin] 10 unit SUBCUT DINNER 11/17/21 [History Last Taken Unknown] insulin aspart U-100 [Novolog Flexpen U-100 Insulin] 15 unit SUBCUT LUNCH 11/17/21 [History Last Taken Unknown] insulin glargine [Lantus U-100 Insulin] 30 unit SUBCUT QHS 11/17/21 [History Last Taken Unknown] lisinopril 40 mg PO DAILY 11/17/21 [History Last Taken Unknown] loratadine 10 mg PO DAILY PRN 11/17/21 [History Last Taken Unknown] menthol [Biofreeze (menthol)] 1 applic TOPICAL TID PRN 11/17/21 [History Last Taken Unknown] metformin 500 mg PO DAILY 11/17/21 [History Last Taken Unknown] multivitamin with minerals [Multi-Daily W/Minerals] 1 tab PO DAILY 11/17/21 [History Last Taken Unknown] nut.tx.gluc.intol,lac-free,soy [Glucerna] 237 ml PO DAILY 11/17/21 [History Last Taken Unknown] omeprazole 40 mg PO DAILY 11/17/21 [History Last Taken Unknown] phenol [Chloraseptic Throat [place]] 4 spray MUCOUS MEMBRANE Q4H PRN #177 ml 11/17/21 [Rx Last Taken Unknown] pravastatin 20 mg PO DAILY 11/17/21 [History Last Taken Unknown] tamsulosin 0.4 mg PO BID 11/17/21 [History Last Taken Unknown] timolol 1 drp EACH EYE DAILY 11/17/21 [History Last Taken Unknown] Allergy/AdvReac Type Severity Reaction Status Date / Time meloxicam AdvReac Other Verified 11/17/21 08:58 Family History Other Arthritis CVA (cerebral vascular accident) Diabetes Surgical History History of cholecystectomy Social History Smoking Status: Never smoker ROS ROS ED Review of Systems ROS Unobtainable: due to mental status EXAM Physical Exam Const Vital Signs: 11/17/21 09:00 11/17/21 09:04 11/17/21 09:26 Temperature 101.5 F H 101.5 F H 101.3 F H Temperature Source Temporal Temporal Oral Pulse Rate 116 H 115 H Respiratory Rate 20 H 20 H Respiratory Effort Respiratory Depth Respiratory Pattern Blood Pressure 175/100 H 175/100 H Blood Pressure Mean 125 125 Pulse Ox 94 94 Oxygen Delivery Method Room Air Room Air 11/17/21 09:32 11/17/21 10:01 11/17/21 10:03 Temperature 101.3 F H 101.3 F H Temperature Source Oral Oral Pulse Rate 121 H 115 H Respiratory Rate 23 H 21 H Respiratory Effort Labored Respiratory Depth Normal Respiratory Pattern Tachypnea Blood Pressure 176/96 H 146/86 H Blood Pressure Mean 122 106 Pulse Ox 95 Oxygen Delivery Method Room Air Room Air Room Air 11/17/21 10:12 Temperature 101.3 F H Temperature Source Oral Pulse Rate 116 H Respiratory Rate 21 H Respiratory Effort Respiratory Depth Respiratory Pattern Blood Pressure 146/86 H Blood Pressure Mean 106 Pulse Ox 95 Oxygen Delivery Method Room Air Positive well nourished and well developed General Appearance ED: well developed HEENT Reports normocephalic, head/scalp atraumatic, TM's clear and dry mucous membranes Negative for trauma Tympanic Membrane ED: Yes TM's clear Mouth ED: Yes dry mucous membranes Mouth: dry mucous membranes Eyes PERRL and EOMs intact bilaterally Neck no lymphadenopathy, supple and no JVD Resp normal respiratory effort and clear to auscultation bilaterally Resp Narrative: dry cough Cardio regular rate and no murmurs Rate: tachycardic GI normal to inspection, nondistended, normoactive bowel sounds and non-tender Palpation: soft Back/Spine no CVA tenderness and normal ROM Extremity normal to inspection General Extremety ED: Negative for edema General Extremity: Negative for edema Neuro CN's II-XII intact bilaterally Sensorium / Orientation: alert and orientation impaired Motor Exam: strength 5/5 throughout Psych Mood & Affect: Negative for depressed or tearful Skin no rashes or lesions noted and no wounds MDM MDM MDM Narrative Medical decision making narrative: Patient's blood work was obtained and shows a leukocytosis of 11.5. Hemoglobin 14 with a platelet count of 400. Lactic acid is at 2. Glucose 229. BUN of 14 with a creatinine of 1.03. My interpretation of the chest x-ray is no acute process. Patient received IV fluids and Tylenol. Patient is not requiring any supplemental oxygen. His labs are reassuring. I spoke with the on[facility]call physician for [facility] Patient will be discharged home Chloraseptic as needed for throat pain. Tylenol Motrin for fever. Return if worsening or concerns Lab Data Attestation: I reviewed the patient's lab results. Labs: Laboratory Results - last 24 hr 11/17/21 11/17/21 11/17/21 09:10 09:10 09:10 WBC 11.5 H RBC 4.89 Hgb 14.0 Hct 43.5 MCV 89.0 MCH 28.6 MCHC 32.2 RDW Std Deviation 45.6 H RDW Coeff of Susi 14.0 Plt Count 400 MPV 9.1 Immature Gran % (Auto) 0.400 Neut % (Auto) 78.1 H Lymph % (Auto) 10.8 L [place] % (Auto) 9.8 Eos % (Auto) 0.3 Baso % (Auto) 0.6 Absolute Neuts (auto) 9.0 H Absolute Lymphs (auto) 1.24 Nucleated RBC % 0 PT 13.3 INR 1.1 APTT 30.1 Sodium 135 L Potassium 4.2 Chloride 102 Carbon Dioxide 26.0 Anion Gap 7 BUN 14 Creatinine 1.03 Estim Creat Clear Calc 48.13 Est GFR (MDRD) Af Amer 88 Est GFR (MDRD) Non-Af 73 BUN/Creatinine Ratio 13.6 Glucose 229 H Lactic Acid Calcium 9.1 Total Bilirubin 0.50 AST 28 ALT 46 Alkaline Phosphatase 118 H Troponin I High Sens 17 Total Protein 8.7 H Albumin 3.9 Globulin 4.8 H Albumin/Globulin Ratio 0.8 L Urine Color Urine Clarity Urine pH Ur Specific [place] Urine Protein Urine Glucose (UA) Urine Ketones Urine Occult Blood Urine Nitrite Urine Bilirubin Urine Urobilinogen Ur Leukocyte Esterase Urine RBC Urine WBC Ur Squamous Epith Cells Urine Bacteria Urine Mucus 11/17/21 11/17/21 09:10 09:10 WBC RBC Hgb Hct MCV MCH MCHC RDW Std Deviation RDW Coeff of Susi Plt Count MPV Immature Gran % (Auto) Neut % (Auto) Lymph % (Auto) [place] % (Auto) Eos % (Auto) Baso % (Auto) Absolute Neuts (auto) Absolute Lymphs (auto) Nucleated RBC % PT INR APTT Sodium Potassium Chloride Carbon Dioxide Anion Gap BUN Creatinine Estim Creat Clear Calc Est GFR (MDRD) Af Amer Est GFR (MDRD) Non-Af BUN/Creatinine Ratio Glucose Lactic Acid 2.0 Calcium Total Bilirubin AST ALT Alkaline Phosphatase Troponin I High Sens Total Protein Albumin Globulin Albumin/Globulin Ratio Urine Color Yellow Urine Clarity Clear Urine pH 6.5 Ur Specific [place] 1.010 Urine Protein 30 H Urine Glucose (UA) 1000 H Urine Ketones 5 H Urine Occult Blood Negative Urine Nitrite Negative Urine Bilirubin Negative Urine Urobilinogen Normal Ur Leukocyte Esterase Negative Urine RBC 0 SEEN Urine WBC 0 SEEN Ur Squamous Epith Cells 0 SEEN Urine Bacteria 0 SEEN Urine Mucus 0 SEEN Radiography Diagnostic Testing: Clinical Impression(s) from Imaging Studies Chest X-Ray 11/17/21 09:17 IMPRESSION: Degenerative changes, as described above. No demonstrated acute cardiopulmonary process. Electronically Signed: Alejandra Callejas MD at 10:05 EST , Discharge Plan Triage Chief Complaint: General Illness ED Provider: Jya Melendrez Dx/Rx/DC Orders Clinical Impression: COVID-19, Dementia Instructions: Coronavirus Disease 2019 (COVID-19): Caring for Yourself or Others Prescriptions: New Chloraseptic Throat [place] 1.4 % aerosol,spray 4 spray mucous membrane Q4H PRN (Reason: sore throat) Qty: 177 RF: 0 No Action metformin 500 mg Tablet 500 mg PO DAILY RF: 0 doxepin 25 mg Capsule 25 mg PO QHS RF: 0 amlodipine 2.5 mg tablet 2.5 mg PO DAILY RF: 0 omeprazole 40 mg Capsule,Delayed Release(Dr/Ec) 40 mg PO DAILY RF: 0 acetaminophen 500 mg Tablet 1,000 mg PO TID RF: 0 tamsulosin 0.4 mg Capsule 0.4 mg PO BID RF: 0 glimepiride 4 mg Tablet 4 mg PO BID RF: 0 calcium carbonate [Calcium Antacid] 200 mg calcium (500 mg) Tablet,Chewable 200 mg PO Q4H PRN (Reason: Gastric Reflux) RF: 0 docusate sodium 100 mg Capsule 100 mg PO BID RF: 0 timolol 0.25 % Drops 1 drp EACH EYE DAILY RF: 0 pravastatin 20 mg Tablet 20 mg PO DAILY RF: 0 multivitamin with minerals [Multi-Daily W/Minerals] Tablet 1 tab PO DAILY RF: 0 lisinopril 40 mg Tablet 40 mg PO DAILY RF: 0 finasteride 5 mg Tablet 5 mg PO DAILY RF: 0 loratadine 10 mg Tablet 10 mg PO DAILY PRN (Reason: Allergic Symptoms) RF: 0 Glucerna Liquid 237 ml PO DAILY RF: 0 insulin aspart U-100 [Novolog Flexpen U-100 Insulin] 100 unit/mL (3 mL) Insulin Pen 10 unit SUBCUT DINNER RF: 0 insulin aspart U-100 [Novolog Flexpen U-100 Insulin] 100 unit/mL (3 mL) Insulin Pen 15 unit SUBCUT LUNCH RF: 0 Lantus U-100 Insulin 100 unit/mL Cartridge 30 unit SUBCUT QHS RF: 0 cholecalciferol (vitamin D3) [Vitamin D3] 125 mcg (5,000 unit) Tablet 125 mcg PO DAILY RF: 0 Biofreeze (menthol) 4 % Gel 1 applic TOPICAL TID PRN (Reason: Pain) RF: 0 Primary Care Provider: Kassie Olivier Referrals: Kassie Olivier MD [Primary Care Provider] - As Needed Disposition Disposition: Home, Self Care
[2021-11-17 09:34] LABS: Bacteria 0 SEEN /hpf (None Seen); Mucous, Urine 0 SEEN /hpf (<or=2+); Red Blood Cells-Urine 0 SEEN /hpf (0-5); Squamous Epithelial Cells - UA 0 SEEN /hpf (0-5); White Blood Cells 0 SEEN /hpf (0-5)
[2021-11-17 09:37] LABS: Absolute Lymphocyte Count 1.24 X10^3/uL (0.83-4.51); Basophil# 0.07 X10^3/uL; Basophil% 0.6 % (0-1); Eosinophil# 0.03 X10^3/uL; Eosinophils% 0.3 % (0-5); Hematocrit 43.5 % (40-54); Lymphocyte # 1.24 X10^3/ul (0.83-4.51); Lymphocyte % 10.8 % (19-41); Mean Corp Hgb Conc 32.2 g/dL (32-36); Mean Corpuscular Hgb 28.6 pg (27.0-32.0); Mean Platelet Vol. 9.1 fl (6.2-12.0); Monocyte# 1.13 X10^3/uL; Monocyte% 9.8 % (0-10); NRBC Flagged by Analyzer 0 % (0-5); Neutrophil # 8.97 X10^3/uL (2.7-7.7); Neutrophil % 78.1 % (47-70); Platelet Count 400 K/mm3 (150-450); RBC Distribution Width SD 45.6 fl (35.1-43.9); Red Blood Count 4.89 M/mm3 (4.6-6.2); White Blood Count 11.5 K/mm3 (4.4-11.0)
[2021-11-17 09:42] LABS: Color, Urine Yellow (Yellow); Glucose, Dipstick 1000 mg/dl (Normal); Ketone-Dipstick 5 mg/dl (Negative); Leukocyte Esterase-Dipstick Negative /ul (Negative); Nitrite-Dipstick Negative (Negative); Occult Blood-Urine Negative /ul (Negative); Protein-Dipstick 30 mg/dl (Negative); Urine Bilirubin Dipstick Negative (Negative); Urine Clarity Clear (Clear); Urine Urobilinogen Normal (Normal); Urine pH 6.5 (5.0 - 8.0)
[2021-11-17] MEDS: 0.9% Normal Saline 1,000 ML 999 ML IV (09:51)
[2021-11-17] MEDS: Acetaminophen 650 MG Suppository RC (09:52)
[2021-11-17 09:54] LABS: International Normalized Ratio 1.1; Prothrombin Time (Protime)PT. 13.3 SECONDS (11.7-14.9)
[2021-11-17 09:55] LABS: Partial Thromboplast Time 30.1 Seconds (24.1-36.2)
[2021-11-17 10:02] LABS: ALB/GLOB Ratio 0.8 RATIO (0.9-2.4); AST(SGOT) 28 U/L (15-37); Alanine Aminotransfer ALT/SGPT 46 U/L (16-61); Albumin, Serum 3.9 g/dL (3.2-5.0); Alkaline Phosphatase 118 U/L (45-117); Anion Gap 7 (5-15); BUN 14 mg/dL (7-18); BUN/Creat Ratio 13.6 RATIO (10-20); Calcium,Total 9.1 mg/dL (8.5-10.1); Chloride 102 mmol/L (98-107); Creatinine, Serum 1.03 mg/dL (0.70-1.30); EST Glomerular Filtration Rate 73 mL/min (>60); Est Glom Filt Rate - Afr Amer 88 mL/min (>60); Estimated Creatinine Clearance 48.13 ml/min; Globulin 4.8 g/dL (2.2-4.2); Glucose 229 mg/dL (74-106); Potassium 4.2 mmol/L (3.5-5.1); Protein, Total 8.7 g/dL (6.4-8.2); Sodium Level 135 mmol/L (136-145); Troponin-I HS 17 pg/mL (3.0-78.0)
--- NOTE | 2021-11-17 10:45 | ED.RN ---
THIS RN CALLED REPORT BACK TO [facility] SPOKE WITH MELIA, NURSE AT [facility].
== END 2021-11-17 11:20 | disposition home or self-care (01) ==
PROVIDERS: Emergency Provider Emergency Medicine; PCP Family Medicine; Visit Provider Emergency Medicine
DX: U07.1 COVID-19 (principal); M06.9 Rheumatoid arthritis, unspecified; F03.90 Unspecified dementia, unspecified severity, without behavioral disturbance, psychotic disturbance, mood disturbance, and anxiety; E11.9 Type 2 diabetes mellitus without complications; Z79.4 Long term (current) use of insulin; I10 Essential (primary) hypertension; E78.5 Hyperlipidemia, unspecified; N40.0 Benign prostatic hyperplasia without lower urinary tract symptoms; E55.9 Vitamin D deficiency, unspecified; Z79.899 Other long term (current) drug therapy
CPT/HCPCS: 71045; 80053; 81001; 83605; 84484; 85025; 85610; 85730; 87040; 87086; 87426; 87804; 93005; 96360; 99285; J7030; A4216